=== PATIENT | female | born 1975 | race Caucasian/White ===

== ENCOUNTER → 2016-05-26 | Outpatient (CLI) | payer OTHER ==
--- NOTE | 2016-05-26 10:31 | MM ---
Reason for exam: follow-up at short interval from prior study. Last mammogram was performed 6 months ago. History: Benign US biopsy breast VAD LT of the left breast, December 08, 2015. Took hormonal contraceptives for 5 years. Physical Findings: Nurse Summary: 0.5cm nodule in the left breast at 6 o'clock (nurse kp). MG Diagnostic Mammo LT w CAD CC and MLO view(s) were taken of the left breast. Prior study comparison: December 08, 2015, left breast MG diagnostic mammo LT wo CAD. June 29, 2015, bilateral MG screening mammo w CAD. The breast tissue is extremely dense which could obscure a lesion on mammography. Previous ultrasound biopsy in the left breast. There is no discrete abnormality. ASSESSMENT: Incomplete: need additional imaging evaluation, BI-RAD 0 RECOMMENDATION: Ultrasound of the left breast. Manage patient on a clinical basis.
--- NOTE | 2016-05-26 10:34 | USB ---
Reason for exam: follow-up at short interval from prior study. History: Benign US biopsy breast VAD LT of the left breast, December 08, 2015. Took hormonal contraceptives for 5 years. US Breast LT Left breast ultrasound including all four quadrants, the retroareolar region and axilla demonstrates a 9 x 6 x 7mm irregular, solid, hypoechoic lesion at prior biopsy site at 6 o'clock, a 10mm cystic cluster at 1 o'clock, a 13mm cyst at 2 o'clock, a 22mm cyst at 2 o'clock and a 17 mm cyst at 10 o'clock. These results were verbally communicated with the patient and result sheet given to the patient on 05/26/16. ASSESSMENT: Benign, BI-RAD 2 RECOMMENDATION: Return to routine screening mammogram schedule for both breasts. Back on schedule for November 2016. Manage patient on a clinical basis.
== END | disposition home or self-care (01) ==
LOC: RADMAMWWP 08:54
PROVIDERS: ATTEND Surgery
DX: R92.8 Other abnormal and inconclusive findings on diagnostic imaging of breast (principal)
CPT/HCPCS: 76641; G0206

== ENCOUNTER → 2016-12-15 | Outpatient (CLI) | payer OTHER ==
--- NOTE | 2016-12-15 08:39 | USB ---
Reason for exam: follow-up at short interval from prior study. History: Family history of breast cancer in maternal aunt at age 40. Benign US biopsy breast VAD LT of the left breast, December 08, 2015. Took hormonal contraceptives for 5 years. Physical Findings: Nurse Summary: right breast palpable 12 o'clock, 6 o'clock, 11 o'clock 1 x 1cm movable, left breast palpables 1 o'clock, 6 o'clock, 10 o'clock, all movable 1 x 1cm (nurse ts). US Breast BILAT Right breast ultrasound includes all four quadrants, the retroareolar region and axilla. Finding demonstrates a 8mm cystic lesion at 7 o'clock and a 12mm cystic lesion at 8 o'clock. Left breast ultrasound includes all four quadrants, the retroareolar region and axilla. Finding demonstrates a 10mm cystic cluster at 12 o'clock, a 12mm cystic lesion at 1 o'clock, a 11mm cystic lesion with debris at 2 o'clock, a 20mm cystic lesion at 2 o'clock and a 5mm lesion at 6 o'clock at prior biopsy site. Bilateral scattered cysts greater in the left breast. These results were verbally communicated with the patient and result sheet given to the patient on 12/15/16. ASSESSMENT: Incomplete: need additional imaging evaluation, BI-RAD 0 RECOMMENDATION: Follow-up diagnostic mammogram of both breasts.
--- NOTE | 2016-12-15 08:47 | MM ---
Reason for exam: follow-up at short interval from prior study. Last mammogram was performed 7 months ago. History: Family history of breast cancer in maternal aunt at age 40. Benign US biopsy breast VAD LT of the left breast, December 08, 2015. Took hormonal contraceptives for 5 years. MG Diagnostic Mammo w CAD ANGELIA Bilateral CC and MLO view(s) were taken. Prior study comparison: May 26, 2016, left breast MG diagnostic mammo LT w CAD. December 08, 2015, left breast MG diagnostic mammo LT wo CAD. Bilateral well circumscribed masses. No suspicious abnormality. No significant new findings when compared with previous films. These results were verbally communicated with the patient and result sheet given to the patient on 12/15/16. ASSESSMENT: Benign, BI-RAD 2 RECOMMENDATION: Routine screening mammogram of both breasts in 1 year.
== END | disposition home or self-care (01) ==
LOC: RADUSWWP 07:01
PROVIDERS: ATTEND Surgery
DX: N60.09 Solitary cyst of unspecified breast (principal); R92.8 Other abnormal and inconclusive findings on diagnostic imaging of breast
CPT/HCPCS: 76641; G0204

== ENCOUNTER → 2017-04-16 | Outpatient (CLI) | payer OTHER | END | disposition home or self-care (01) | LOC: LABMAIN 16:40 | PROVIDERS: ATTEND Family Medicine | DX: Z11.59 Encounter for screening for other viral diseases (principal) | CPT/HCPCS: 87502 ==

== ENCOUNTER 2017-05-19 19:26 | Emergency (ER) | payer OTHER ==
[2017-05-19 20:01] VITALS: PULSE 77; RESP 18
[2017-05-19] MEDS ORDERED: diphenhydrAMINE 25 MG CAP PO STA (22:27)
[2017-05-19] MEDS ORDERED: IBUPROFEN 600 MG TAB PO STA (22:27)
[2017-05-19] MEDS ORDERED: predniSONE 20 MG TAB PO STA (22:27)
[2017-05-19] MEDS ORDERED: PROCHLORPERAZINE 10 MG TAB PO STA (22:27)
--- NOTE | 2017-05-19 22:28 | ED ---
General Adult HPI - General Chief complaint: Headache Stated complaint: Migraine Time Seen by Provider: 05/19/17 21:17 Source: patient, RN notes reviewed, old records reviewed Mode of arrival: ambulatory Limitations: no limitations - History of Present Illness Initial comments: This is a 41-year-old female the ER for evaluation of migraine. History of migraine. By the time patient is evaluated here in the emergency room, patient' s migraine has resolved. 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 ROS Other: All systems not noted in ROS Statement are negative. Past Medical History Past Medical History: No Reported History Additional Past Medical History / Comment(s): migraines History of Any Multi-Drug Resistant Organisms: None Reported Past Surgical History: Appendectomy, Section Past Psychological History: Anxiety, Bipolar, Depression Smoking Status: Current every day smoker Past Alcohol Use History: Occasional Past Drug Use History: None Reported General Exam Limitations: no limitations General appearance: alert, in no apparent distress Head exam: Present: atraumatic, normocephalic, normal inspection Eye exam: Present: normal appearance, PERRL, EOMI. Absent: scleral icterus, conjunctival injection, periorbital swelling ENT exam: Present: normal exam, mucous membranes moist Neck exam: Present: normal inspection. Absent: tenderness, meningismus, lymphadenopathy Respiratory exam: Present: normal lung sounds bilaterally. Absent: respiratory distress, wheezes, rales, rhonchi, stridor Cardiovascular Exam: Present: regular rate, normal rhythm, normal heart sounds. Absent: systolic murmur, diastolic murmur, rubs, gallop, clicks GI/Abdominal exam: Present: soft, normal bowel sounds. Absent: distended, tenderness, guarding, rebound, rigid Extremities exam: Present: normal inspection, full ROM, normal capillary refill. Absent: tenderness, pedal edema, joint swelling, calf tenderness Back exam: Present: normal inspection Neurological exam: Present: alert, oriented X3, CN II-XII intact Psychiatric exam: Present: normal affect, normal mood Skin exam: Present: warm, dry, intact, normal color. Absent: rash Course Vital Signs 05/19/17 05/19/17 19:58 22:50 Temperature 97.5 F L 98.6 F Pulse Rate 77 77 Respiratory 18 18 Rate Blood Pressure 106/72 125/69 O2 Sat by Pulse 99 96 Oximetry - Reevaluation(s) Reevaluation #1: Patient recurrently coming off the desk asking to be discharged home states that she has no longer with headache, does not want medication Medical Decision Making - Medical Decision Making 41 female the ER with acute on chronic migraine headache. Headache resolved, patient can be discharged Disposition Clinical Impression: Migraine, Headache Disposition: HOME SELF-CARE Condition: Good Instructions: Acute Headache (ED) Referrals: Jeremias Frey DO [Primary Care Provider] - 1-2 days
[2017-05-19 22:52] VITALS: BP 125/69; TEMP 98.6
== END 2017-05-19 22:52 | disposition home or self-care (01) ==
LOC: EC 19:26
DX: G43.909 Migraine, unspecified, not intractable, without status migrainosus (principal); F17.200 Nicotine dependence, unspecified, uncomplicated; Z79.899 Other long term (current) drug therapy; Z88.1 Allergy status to other antibiotic agents
CPT/HCPCS: 99283; J7512

== ENCOUNTER 2017-07-22 09:35 | Observation (INO) | payer OTHER ==
[2017-07-22] MEDS ORDERED: NITROGLYCERIN SL TABS 0.4 MG TAB SUBLINGUAL STA (09:49)
[2017-07-22] MEDS ORDERED: ASPIRIN 81 MG PO STA (09:49)
--- NOTE | 2017-07-22 09:52 | ED ---
Chest Pain HPI - General Chief Complaint: Chest Pain Stated Complaint: Chest Pain Time Seen by Provider: 07/22/17 09:44 Source: patient, RN notes reviewed Mode of arrival: wheelchair Limitations: no limitations - History of Present Illness Initial Comments: Is a 41-year-old female with a benign past medical history other than smoking who states she had the onset about 30 minutes prior to arrival of sharp tight chest pain that feels a band around her chest at its worse is 9/10 currently is about a 7 it does increase with movement and certain positional changes she has no prior history of anything like this a history of heart or lung disease that she knows of no history of family having heart or lung issues at early age. No cough fevers chills sweats or other symptoms no other modifying factors. 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 ROS Other: All systems not noted in ROS Statement are negative. Past Medical History Past Medical History: No Reported History Additional Past Medical History / Comment(s): migraines History of Any Multi-Drug Resistant Organisms: None Reported Past Surgical History: Appendectomy, Section Past Psychological History: Anxiety, Bipolar, Depression Smoking Status: Current every day smoker Past Alcohol Use History: Occasional Past Drug Use History: None Reported General Exam - General Exam Comments Initial Comments: This is a well-developed well-nourished awake alert oriented 3 female Limitations: no limitations General appearance: alert, anxious Head exam: Present: atraumatic, normocephalic, normal inspection Eye exam: Present: normal appearance, PERRL, EOMI. Absent: scleral icterus, conjunctival injection, periorbital swelling ENT exam: Present: normal exam, mucous membranes moist Neck exam: Present: normal inspection. Absent: tenderness, meningismus, lymphadenopathy Respiratory exam: Present: normal lung sounds bilaterally. Absent: respiratory distress, wheezes, rales, rhonchi, stridor, chest wall tenderness Cardiovascular Exam: Present: regular rate, normal rhythm, normal heart sounds, other (Peripheral pulses are equal bilaterally). Absent: systolic murmur, diastolic murmur, rubs, gallop, clicks GI/Abdominal exam: Present: soft, normal bowel sounds. Absent: distended, tenderness, guarding, rebound, rigid Extremities exam: Present: normal inspection, full ROM, normal capillary refill. Absent: tenderness, pedal edema, joint swelling, calf tenderness Back exam: Present: normal inspection Neurological exam: Present: alert, oriented X3, CN II-XII intact Psychiatric exam: Present: normal affect, normal mood Skin exam: Present: warm, dry, intact, normal color. Absent: rash Course Vital Signs 07/22/17 07/22/17 07/22/17 09:36 10:35 11:21 Temperature 97.7 F Pulse Rate 90 63 69 Respiratory 22 16 16 Rate Blood Pressure 102/59 90/50 97/59 O2 Sat by Pulse 100 100 100 Oximetry - Reevaluation(s) Reevaluation #1: 07/22/17 11:35 Patient did seem to get some improvement with the nitroglycerin was rendered she still had pain it was bandlike and approximately 5/10. Reevaluation #2: 07/22/17 11:36 Patient did get "little results from IV Toradol. Chest Pain MDM - MDM Imaging reveals no acute findings. I did review the images as well as report. Patient does have chest pain that seemed to improve with nitroglycerin. She will be admitted for rule out ACS. Critical Care Time Critical Care Time: Yes Disposition Clinical Impression: Unstable angina pectoris, Chest pain Disposition: ADMITTED IP TO THIS [facility] Condition: Stable Referrals: Jeremias Frey DO [Primary Care Provider] - 1-2 days
[2017-07-22 10:10] LABS: Basophils % (A) 0 %; Eosinophils # (A) 0.1 k/uL (0-0.7); Eosinophils % (A) 2 %; HCT 39.6 % (34.0-46.0); HGB 13.7 gm/dL (11.4-16.0); Lymphocytes # (A) 2.2 k/uL (1.0-4.8); Lymphocytes % (A) 28 %; MCH 28.6 pg (25.0-35.0); MCHC 34.6 g/dL (31.0-37.0); MCV 82.8 fL (80.0-100.0); Mean Platelet Volume 7.3; Monocytes # (A) 0.4 k/uL (0-1.0); Monocytes % (A) 5 %; Neutrophils # (A) 5.1 k/uL (1.3-7.7); Neutrophils % (A) 65 %; Platelet Count 279 k/uL (150-450); RBC 4.78 m/uL (3.80-5.40); RDW 12.7 % (11.5-15.5); WBC 7.9 k/uL (3.8-10.6)
[2017-07-22 10:17] LABS: Albumin 4.2 g/dL (3.5-5.0); Calcium 9.7 mg/dL (8.4-10.2); Potassium 4.2 mmol/L (3.5-5.1); Total Bilirubin 0.7 mg/dL (0.2-1.3); Total Protein 6.7 g/dL (6.3-8.2)
[2017-07-22 10:25] LABS: D-Dimer 0.34 mg/L FEU (<0.60); INR 1.1 (<1.2); Partial Thromboplastin Time 22.7 sec (22.0-30.0); Prothrombin Time 10.3 sec (9.0-12.0)
[2017-07-22 10:32] LABS: Creatine Kinase 45 U/L (30-135)
--- NOTE | 2017-07-22 10:34 | XR ---
EXAMINATION TYPE: XR chest 2V DATE OF EXAM: 07/22/2017 HISTORY: Chest Pain. REFERENCE: Previous study dated 10/08/2013. FINDINGS: The lungs remain clear. Pleural spaces are clear. The heart is not enlarged. IMPRESSION: NORMAL CHEST.
[2017-07-22] MEDS ORDERED: KETOROLAC 30 MG/ML 1 ML VIAL IVP STA (10:35)
[2017-07-22 10:45] LABS: Creatine Kinase MB <0.2 ng/mL (0.0-2.4); Troponin I <0.012 ng/mL (0.000-0.034)
[2017-07-22] MEDS ORDERED: NITROGLYCERIN SL TABS 0.4 MG TAB SUBLINGUAL PRN (11:37)
[2017-07-22] MEDS ORDERED: SUMAtriptan SUCCINATE 50 MG TAB PO PRN (11:40)
[2017-07-22] MEDS ORDERED: HEPARIN SOD,PORK IN 0.45% NACL 25,000 UNIT in 0.45% NACL 1 500ML.BAG IV SCH (11:45)
[2017-07-22] MEDS: HEPARIN SODIUM,PORCINE 5,000 UNIT/ML 1 ML VIAL IV ONE ×2 (12:10→20:35)
[2017-07-22] MEDS: NITROGLYCERIN OINT 1 INCH/GM PACKET TOPICAL SCH ×3 (12:16→18:34)
[2017-07-22] MEDS: SODIUM CHLORIDE 0.9% 1,000 ML IV SCH (12:16)
[2017-07-22 17:00] LABS: Creatine Kinase 42 U/L (30-135)
[2017-07-22 17:12] LABS: Creatine Kinase MB <0.2 ng/mL (0.0-2.4); Troponin I <0.012 ng/mL (0.000-0.034)
[2017-07-22 18:02] VITALS: BMI 38.8
--- NOTE | 2017-07-22 18:37 | P.HPIM ---
History of Present Illness 41-year-old female with no significant past medical history came in with complaints of upper back pain radiating around the chest lasted for about the 30 minutes 9/10 in severity. Denied any radiation to the neck chain are arms. Patient was having acid reflux symptoms for few days staking Prilosec stent milligrams in the morning but she continues to have symptoms at nighttime although this pain appears to be different from that. Patient pain is not associated with food nonpleuritic in nature, d-dimer is negative chest x-ray did not show any pneumonic process or hiatal hernia EKG did not show any acute ST-T wave changes facet of troponin is negative does have history of smoking doesn't have any history of hypertension premature coronary artery disease, diabetes mellitus or hyperlipidemia Review of Systems REVIEW OF SYSTEMS: CONSTITUTIONAL: No fever, no malaise, no fatigue. HEENT: No recent visual problems or hearing problems. Denied any sore throat. CARDIOVASCULAR: No orthopnea, PND, no palpitations, no syncope. PULMONARY: No shortness of breath, no cough, no hemoptysis. GASTROINTESTINAL: No diarrhea, no nausea, no vomiting, no abdominal pain. Normoactive bowel sounds. NEUROLOGICAL: No headaches, no weakness, no numbness. HEMATOLOGICAL: Denies any bleeding or petechiae. GENITOURINARY: Denies any burning micturition, frequency, or urgency. MUSCULOSKELETAL/RHEUMATOLOGICAL: Denies any joint pain, swelling, or any muscle pain. ENDOCRINE: Denies any polyuria or polydipsia. The rest of the 14-point review of systems is negative. Past Medical History Past Medical History: GERD/Reflux, Pneumonia Additional Past Medical History / Comment(s): migraines History of Any Multi-Drug Resistant Organisms: None Reported Past Surgical History: Appendectomy, Section Additional Past Surgical History / Comment(s): L breast biopsy (2017) benign Past Anesthesia/Blood Transfusion Reactions: No Reported Reaction Past Psychological History: Anxiety, Bipolar, Depression Smoking Status: Current every day smoker Past Alcohol Use History: Occasional Past Drug Use History: None Reported - Past Family History Mother Family Medical History: Cancer, Hypertension Additional Family Medical History / Comment(s): Breast cancer dx 2018 Father History Unknown: Yes Medications and Allergies Home Medications Medication Instructions Recorded Confirmed Type Cholecalciferol [Vitamin D3] 2,000 unit PO DAILY 03/15/16 07/22/17 History 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] 10 mg PO DAILY PRN 05/19/17 07/22/17 History Topiramate [Topamax] 25 mg PO HS 07/22/17 07/22/17 History Allergies Allergy/AdvReac Type Severity Reaction Status Date / Time egg Allergy Unknown Verified 07/22/17 12:07 nitrofurantoin Allergy Rash/Hives Verified 07/22/17 12:07 tetracycline [Tetracycline] Allergy Rash/Hives Verified 07/22/17 12:07 Physical Exam Vitals: Vital Signs Temp Pulse Pulse Resp BP BP Pulse Ox 07/22/17 15:35 97.6 F 72 14 107/67 97 07/22/17 15:24 98.4 F 66 16 93/53 97 07/22/17 13:00 78 16 96/58 99 07/22/17 12:16 69 16 85/53 98 07/22/17 11:21 69 16 97/59 100 07/22/17 10:35 63 16 90/50 100 07/22/17 09:36 97.7 F 90 22 102/59 100 Intake and Output 07/22/17 07/22/17 07/22/17 06:59 14:59 22:59 Other: Weight 99.79 kg 99.4 kg PHYSICAL EXAMINATION: GENERAL: The patient is alert and oriented x3, not in any acute distress. Well developed, well nourished. HEENT: Pupils are round and equally reacting to light. EOMI. No scleral icterus. No conjunctival pallor. Normocephalic, atraumatic. No pharyngeal erythema. No thyromegaly. CARDIOVASCULAR: S1 and S2 present. No murmurs, rubs, or gallops. PULMONARY: Chest is clear to auscultation, no wheezing or crackles. ABDOMEN: Soft, nontender, nondistended, normoactive bowel sounds. No palpable organomegaly. MUSCULOSKELETAL: No joint swelling or deformity. EXTREMITIES: No cyanosis, clubbing, or pedal edema. NEUROLOGICAL: Gross neurological examination did not reveal any focal deficits. SKIN: No rashes. Results CBC & Chem 7: 07/22/17 09:57 07/22/17 09:57 Labs: Abnormal Lab Results - Last 24 Hours (Table) 07/22/17 Range/Units 09:57 Chloride 110 H (98-107) mmol/L Carbon Dioxide 21 L (22-30) mmol/L AST 13 L (14-36) U/L Thrombosis Risk Factor Assmnt - Choose All That Apply Each Factor Represents 1 point: Age 41-60 years Thrombosis Risk Factor Assessment Total Risk Factor Score: 1 Thrombosis Risk Factor Assessment Level: Low Risk Assessment and Plan Plan: Chest pain-we'll rule out acute coronary syndromes, cardiology was consulted from ER, patient will be monitored overnight today. Patient's chest pain is probably musculoskeletal from thoracic spine. -Gastroesophageal reflux disease: Patient will be started on proton pump inhibitor is advised to take 20 mg twice a day of Prilosec for 15 days and if patient's symptoms doesn't improve may need an upper GI endoscopy and Helicobacter pylori testing. -History of migraines, patient will be resumed on her home medications. -Smoking history: Counseling was provided
[2017-07-22] MEDS: PANTOPRAZOLE 40 MG TABLET PO SCH (18:40)
--- NOTE | 2017-07-22 18:41 | XR ---
EXAMINATION TYPE: XR thoracic spine complete DATE OF EXAM: 07/22/2017 COMPARISON: NONE HISTORY: 41-year-old female with back pain TECHNIQUE: 3 views FINDINGS: 12 rib-bearing thoracic vertebral bodies. All pedicles are visualized. Mild endplate spondylosis thro ughout the mid thoracic spine with mild degenerative disc disease. Vertebral body heights are preserv ed and alignment is maintained. 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 No vertebral compression collapse or remedios lignment.
[2017-07-22] MEDS ORDERED: HEPARIN SODIUM,PORCINE 5,000 UNIT/ML 1 ML VIAL IV PRN (20:16)
[2017-07-22] MEDS: TOPIRAMATE 25 MG TAB PO SCH (20:36)
[2017-07-22 22:38] LABS: Creatine Kinase 41 U/L (30-135)
[2017-07-22 22:51] LABS: Creatine Kinase MB <0.2 ng/mL (0.0-2.4); Troponin I <0.012 ng/mL (0.000-0.034)
[2017-07-23] MEDS: NITROGLYCERIN OINT 1 INCH/GM PACKET TOPICAL SCH ×2 (00:32→06:19)
[2017-07-23 02:27] LABS: Cholesterol 139 mg/dL (<200); HDL Cholesterol 39 mg/dL (40-60); LDL Cholesterol,Calculated 76 mg/dL (0-99); Triglycerides 121 mg/dL (<150)
--- NOTE | 2017-07-23 08:32 | P.CRDCN ---
History of Present Illness Consult date: 07/23/17 Requesting physician: Jeremias Frey Consult reason: chest pain Chief complaint: Upper back pain, chest pain, nausea History of present illness: This is a pleasant 41-year-old female with no prior documented history of hypertension, no hyperlipidemia, nondiabetic, positive smoker, history of migraines, who presents to the hospital with symptoms of upper back intrascapular discomfort area she states that she was getting ready for work when the symptoms started. They came on all of a sudden felt like a pain in her upper back, she sat down and tried to stretch the discomfort away, but she said this does not work. She did go on run a few errands, pain seemed to worsen as the day progressed, patient also then noticed a pain going underneath her right breast area. She states that for the past one week or so she's been having episodes of nausea, no vomiting or diarrhea. She also has been getting intermittent abdominal discomfort unrelated to this episode. Blood pressure 96/ 50 heart rate in the 60s, 97% on room air, temperature 97.7. EKG on arrival showed a normal sinus rhythm with no acute changes. Subsequent EKG showed normal sinus rhythm with no acute changes. Chest x-ray normal. Thoracic spine x-ray revealed mild degenerative disc disease in the mid to upper thoracic spine. No vertebral compression collapse or misalignment. Laboratory data, CBC is normal, d-dimer negative, sodium 145, potassium 4.2, BUN 16, creatinine 0.9. Magnesium level 2.0. Troponins negative 3. Cholesterol 139, LDL 76, HDL 39, triglycerides 121. At the time of my examination this morning, patient is currently chest pain-free. Upon examination, when taking a deep breath patient does experience upper back and scapular discomfort while taking a deep breath. Past Medical History Past Medical History: GERD/Reflux, Pneumonia Additional Past Medical History / Comment(s): migraines History of Any Multi-Drug Resistant Organisms: None Reported Past Surgical History: Appendectomy, Section Additional Past Surgical History / Comment(s): L breast biopsy (2017) benign Past Anesthesia/Blood Transfusion Reactions: No Reported Reaction Past Psychological History: Anxiety, Bipolar, Depression Smoking Status: Current every day smoker Past Alcohol Use History: Occasional Past Drug Use History: None Reported - Past Family History Mother Family Medical History: Cancer, Hypertension Additional Family Medical History / Comment(s): Breast cancer dx 2018 Father History Unknown: Yes Medications and Allergies Home Medications Medication Instructions Recorded Confirmed Type Cholecalciferol [Vitamin D3] 2,000 unit PO DAILY 03/15/16 07/22/17 History Rizatriptan Odt [[employer] Workers Compensation Attorney] 10 mg PO DAILY PRN 05/19/17 07/22/17 History Topiramate [Topamax] 25 mg PO HS 07/22/17 07/22/17 History Allergies Allergy/AdvReac Type Severity Reaction Status Date / Time egg Allergy Unknown Verified 07/22/17 12:07 nitrofurantoin Allergy Rash/Hives Verified 07/22/17 12:07 tetracycline [Tetracycline] Allergy Rash/Hives Verified 07/22/17 12:07 Physical Exam Vitals: Vital Signs Temp Pulse Pulse Pulse Resp BP BP 07/23/17 04:00 97.7 F 66 64 18 96/57 07/23/17 00:18 97 F L 72 16 94/52 07/23/17 00:00 65 16 07/22/17 20:20 97.8 F 70 16 92/56 07/22/17 20:00 69 16 07/22/17 15:35 97.6 F 72 14 107/67 07/22/17 15:24 98.4 F 66 16 93/53 07/22/17 13:00 78 16 96/58 07/22/17 12:16 69 16 85/53 07/22/17 11:21 69 16 97/59 07/22/17 10:35 63 16 90/50 07/22/17 09:36 97.7 F 90 22 102/59 Pulse Ox 07/23/17 04:00 97 07/23/17 00:18 96 07/23/17 00:00 07/22/17 20:20 96 07/22/17 20:00 07/22/17 15:35 97 07/22/17 15:24 97 07/22/17 13:00 99 07/22/17 12:16 98 07/22/17 11:21 100 07/22/17 10:35 100 07/22/17 09:36 100 Intake and Output 07/22/17 07/23/17 07/23/17 22:59 06:59 14:59 Intake Total 167.913 Balance 167.913 Intake: Intake, IV Titration 167.913 Amount Heparin Sod,Pork in 0.45% 167.913 NaCl 25,000 unit In 0.45 % NaCl 1 500ml.bag @ 10 UNITS/KG/HR 19.95 mls/hr IV .Q24H [facility] Rx#: [id number] Other: Voiding Method Toilet Toilet # Voids 1 Weight 99.4 kg 99.4 kg PHYSICAL EXAMINATION: HEENT: Head is atraumatic, normocephalic. Pupils equal, round. Neck is supple. There is no elevated jugular venous pressure. HEART EXAMINATION: Heart S1, S2 normal. No murmur or gallop heard. CHEST EXAMINATION:[ Lungs are clear to auscultation and precussion. Positive upper back and scapular discomfort with deep breathing. ABDOMEN: Soft, nontender. Bowel sounds are heard. No organomegaly noted. EXTREMITIES: 2+ peripheral pulses with no evidence of peripheral edema and no calf tenderness noted. NEUROLOGIC patient is awake, alert and oriented -3. . Results 07/22/17 09:57 07/22/17 09:57 Cardiac Enzymes 07/22/17 07/22/17 07/22/17 Range/Units 09:57 09:57 16:10 AST 13 L (14-36) U/L CK-MB (CK-2) <0.2 <0.2 (0.0-2.4) ng/mL Troponin I <0.012 <0.012 (0.000-0.034) ng/mL 07/22/17 Range/Units 22:04 AST (14-36) U/L CK-MB (CK-2) <0.2 (0.0-2.4) ng/mL Troponin I <0.012 (0.000-0.034) ng/mL Coagulation 07/22/17 07/22/17 07/23/17 Range/Units 09:57 19:01 01:21 PT 10.3 (9.0-12.0) sec APTT 22.7 33.1 H 57.7 H (22.0-30.0) sec Lipids 07/23/17 Range/Units 01:21 Triglycerides 121 (<150) mg/dL Cholesterol 139 (<200) mg/dL HDL Cholesterol 39 L (40-60) mg/dL CBC 07/22/17 Range/Units 09:57 WBC 7.9 (3.8-10.6) k/uL RBC 4.78 (3.80-5.40) m/uL Hgb 13.7 (11.4-16.0) gm/dL Hct 39.6 (34.0-46.0) % Plt Count 279 (150-450) k/uL Comprehensive Metabolic Panel 07/22/17 Range/Units 09:57 Sodium 145 (137-145) mmol/L Potassium 4.2 (3.5-5.1) mmol/L Chloride 110 H (98-107) mmol/L Carbon Dioxide 21 L (22-30) mmol/L BUN 16 (7-17) mg/dL Creatinine 0.92 (0.52-1.04) mg/dL Glucose 98 (74-99) mg/dL Calcium 9.7 (8.4-10.2) mg/dL AST 13 L (14-36) U/L ALT 20 (9-52) U/L Alkaline Phosphatase 53 (38-126) U/L Total Protein 6.7 (6.3-8.2) g/dL Albumin 4.2 (3.5-5.0) g/dL Current Medications Generic Name Dose Route Start Last Admin Trade Name Freq PRN Reason Stop Dose Admin Aspirin 325 mg 07/23/17 09:00 Aspirin PO DAILY [facility] Cholecalciferol 1,000 unit 07/23/17 09:00 Vitamin D3 PO DAILY [facility] Heparin Sodium (Porcine) 0 unit 07/22/17 20:16 Heparin IV PER PROTOCOL PRN Low PTT Protocol Heparin Sodium/Sodium Chloride 500 mls @ 19.95 mls/hr 07/22/17 11:45 20:35 25,000 unit/ Sodium Chloride IV 13.02 units/kg/hr .Q24H [facility] 26 mls/hr Protocol Titration 10 UNITS/KG/HR Sodium Chloride 1,000 mls @ 20 mls/hr 07/22/17 11:45 07/22/17 12:16 Saline 0.9% IV 20 mls/hr .Q24H [facility] Administration Nitroglycerin 1 inch 07/22/17 12:00 07/23/17 06:19 Nitro-Bid Oint TOPICAL Not Given Q6HR [facility] Nitroglycerin 0.4 mg 07/22/17 11:37 Nitrostat SUBLINGUAL Q5M PRN Chest Pain Pantoprazole Sodium 40 mg 07/22/17 18:15 07/22/17 18:40 Protonix PO 40 mg AC-BID [facility] Administration Sumatriptan Succinate 100 mg 07/22/17 11:40 Imitrex PO DAILY PRN Migraine Headache Topiramate 25 mg 07/22/17 21:00 07/22/17 20:36 Topamax PO 25 mg HS [facility] Administration Intake and Output 07/22/17 07/23/17 07/23/17 22:59 06:59 14:59 Intake Total 167.913 Balance 167.913 Intake: Intake, IV Titration 167.913 Amount Heparin Sod,Pork in 0.45% 167.913 NaCl 25,000 unit In 0.45 % NaCl 1 500ml.bag @ 10 UNITS/KG/HR 19.95 mls/hr IV .Q24H [facility] Rx#: [id number] Other: Voiding Method Toilet Toilet # Voids 1 Weight 99.4 kg 99.4 kg 07/22/17 09:57 07/22/17 09:57 EKG Interpretations (text) EKG shows a normal sinus rhythm with no acute changes. Assessment and Plan Plan: Assessment and plan #1 symptoms of upper back and scapular discomfort with associated chest discomfort, atypical for acute coronary syndrome. Appears to be musculoskeletal and pleuritic in nature. Troponins negative 3. EKG shows normal sinus rhythm with no acute changes. D-dimer negative. #2 nicotine dependence #3 cardiac risk factors negative for hypertension, no diabetes, no hyperlipidemia #4 persistent nausea and occasional abdominal discomfort Plan We will obtain an echocardiogram with Doppler study. Discontinue Nitropaste. Discontinue IV heparin. Decrease aspirin to 81 mg daily. We will obtain an ultrasound of the gallbladder because of the symptoms of persistent nausea and abdominal discomfort. We also recommend patient undergo stress testing tomorrow to rule out underlying coronary artery disease. Further recommendations to follow. DNP note has been reviewed, I agree with a documented findings and plan of care. Patient was seen and examined.
[2017-07-23] MEDS ORDERED: ASPIRIN 325 MG TAB PO SCH (09:00)
--- NOTE | 2017-07-23 09:52 | US ---
EXAMINATION TYPE: US gallbladder DATE OF EXAM: 07/23/2017 COMPARISON: NONE CLINICAL HISTORY: nausea, abd pain. EXAM MEASUREMENTS: Liver Length: 17.3 cm Gallbladder Wall: 0.2 cm CBD: 0.3 cm Right Kidney: 11.2 x 4.7 x 4.7 cm Limited due to bowel gas. Pancreas: wnl Liver: wnl Gallbladder: wnl Evidence for sonographic Chavarria's sign: No CBD: wnl Right Kidney: wnl The pancreas is unremarkable. The liver is upper limits of normal in size without biliary dilatation. The gallbladder is normal without evidence of cholelithiasis. The gallbladder wall measures 2.5 mm. T he distal common hepatic duct measures 2.9 mm. There is no sonographic Chavarria's sign. The right kidney is unremarkable. Intrahepatic IVC is normal. IMPRESSION: NORMAL RIGHT UPPER QUADRANT ULTRASOUND.
[2017-07-23] MEDS: PANTOPRAZOLE 40 MG TABLET PO SCH ×2 (12:17→17:27)
[2017-07-23] MEDS: ASPIRIN 81 MG PO SCH (12:17)
[2017-07-23] MEDS: CHOLECALCIFEROL 1,000 UNIT TAB PO SCH (12:17)
--- NOTE | 2017-07-23 17:06 | P.PN ---
Subjective Patient was admitted with chest pain mostly [place] skeletal nature patient does have degenerative thoracic spine disease and spondylolisthesis. Ultrasound of the right upper quadrant was obtained by cardiology which was negative for any cholelithiasis. Cardiology is recommending inpatient stress test. Her chest pain is / now Constitutional: Denied any fatigue denied any fever. Cardio vascular: denied any chest pain, palpitations Gastrointestinal denied any nausea vomiting Pulmonary: Denied any shortness of breath cough Neurologic denied any new focal deficits Objective - Vital Signs Vital signs: Vital Signs Temp 97.9 F 07/23/17 16:00 Pulse 70 07/23/17 16:00 Resp 16 07/23/17 16:00 BP 111/56 07/23/17 16:00 Pulse Ox 97 07/23/17 16:00 Intake & Output 07/22/17 07/23/17 07/23/17 18:59 06:59 18:59 Intake Total 167.913 Balance 167.913 Weight 99.4 kg 99.4 kg Intake: Intake, IV Titration 167.913 Amount Heparin Sod,Pork in 0.45% 167.913 NaCl 25,000 unit In 0.45 % NaCl 1 500ml.bag @ 10 UNITS/KG/HR 19.95 mls/hr IV .Q24H [facility] Rx#: [id number] Other: Voiding Method Toilet Toilet Toilet # Voids 1 - Exam PHYSICAL EXAMINATION: GENERAL: The patient is alert and oriented x3, not in any acute distress. Well developed, well nourished. HEENT: Pupils are round and equally reacting to light. EOMI. No scleral icterus. No conjunctival pallor. Normocephalic, atraumatic. No pharyngeal erythema. No thyromegaly. CARDIOVASCULAR: S1 and S2 present. No murmurs, rubs, or gallops. PULMONARY: Chest is clear to auscultation, no wheezing or crackles. ABDOMEN: Soft, nontender, nondistended, normoactive bowel sounds. No palpable organomegaly. MUSCULOSKELETAL: No joint swelling or deformity. EXTREMITIES: No cyanosis, clubbing, or pedal edema. NEUROLOGICAL: Gross neurological examination did not reveal any focal deficits. SKIN: No rashes. - Labs CBC & Chem 7: 07/22/17 09:57 07/22/17 09:57 Labs: Abnormal Lab Results - Last 24 Hours (Table) 07/22/17 07/23/17 07/23/17 Range/Units 19:01 01:21 01:21 APTT 33.1 H 57.7 H (22.0-30.0) sec HDL Cholesterol 39 L (40-60) mg/dL Assessment and Plan Plan: Chest pain-we'll rule out acute coronary syndromes, cardiology was consulted from ER, patient will be monitored overnight today. Patient's chest pain is probably musculoskeletal from thoracic spine. Cardiology is recommending inpatient stress test which will be done tomorrow along with echocardiogram -Gastroesophageal reflux disease: Patient will be started on proton pump inhibitor patient was advised to take 20 mg twice a day of Prilosec for 15 days and if patient's symptoms doesn't improve may need an upper GI endoscopy and Helicobacter pylori testing. -History of migraines, patient will be resumed on her home medications. -Smoking history: Counseling was provided
[2017-07-23] MEDS: TOPIRAMATE 25 MG TAB PO SCH (20:48)
[2017-07-24 07:57] VITALS: RESP 18
--- NOTE | 2017-07-24 10:52 | ECHOF ---
Referral Reason:chest pain MEASUREMENTS -------- HEIGHT: 160.0 cm WEIGHT: 99.3 kg BP: 102/61 RVIDd: 2.8 cm (< 3.3) IVSd: 1.2 cm (0.6 - 1.1) LVIDd: 4.5 cm (3.9 - 5.3) LVPWd: 1.2 cm (0.6 - 1.1) IVSs: 1.6 cm LVIDs: 3.0 cm LVPWs: 1.6 cm LA Diam: 2.9 cm (2.7 - 3.8) LAESV Index (A-L): 13.95 ml/m Ao Diam: 3.0 cm (2.0 - 3.7) AV Cusp: 2.2 cm (1.5 - 2.6) MV EXCURSION: 17.310 mm (> 18.000) MV EF SLOPE: 69 mm/s (70 - 150) EPSS: 0.7 cm MV E Terrell: 0.82 m/s MV DecT: 233 ms MV A Terrell: 0.78 m/s MV E/A Ratio: 1.06 FINDINGS -------- Sinus rhythm. This was a technically adequate study. The left ventricular size is normal. There is borderline concentric left ventricular hypertrophy. Overall left ventricular systolic function is normal with, an EF between 55 - 60 %. The right ventricle is normal in size. Normal LA size by volume 22+/-6 ml/m2. The right atrium is normal in size. The aortic valve is trileaflet and appears structurally normal. The mitral valve is normal. The tricuspid valve appears structurally normal. There is no pulmonic regurgitation present. The aortic root size is normal. Normal inferior vena cava with normal inspiratory collapse consistent with estimated right atrial pre ssure of 5 mmHg. There is no pericardial effusion. CONCLUSIONS -------- 1. Sinus rhythm. 2. This was a technically adequate study. 3. The left ventricular size is normal. 4. There is borderline concentric left ventricular hypertrophy. 5. Overall left ventricular systolic function is normal with, an EF between 55 - 60 %. 6. The right ventricle is normal in size. 7. Normal LA size by volume 22+/-6 ml/m2. 8. The right atrium is normal in size. 9. The aortic valve is trileaflet and appears structurally normal. 10. The mitral valve is normal. 11. The tricuspid valve appears structurally normal. 12. There is no pulmonic regurgitation present. 13. The aortic root size is normal. 14. Normal inferior vena cava with normal inspiratory collapse consistent with estimated right atrial pressure of 5 mmHg. 15. There is no pericardial effusion. CLINIC PHYSICIAN: Estefany Cotter RDCS
--- NOTE | 2017-07-24 11:12 | P.PN ---
Subjective Progress Note Date: 07/24/17 Mrs. Ortiz is a pleasant 41-year-old female past medical history significant for gastroesophageal reflux disease, anxiety and chronic tobacco use. She was seen yesterday in consultation for symptoms of chest pain. She has had no further symptoms of chest discomfort since admission. Blood pressure 105/ 57 heart rate 71 afebrile and maintaining oxygen saturation on room air. Telemetry tracings have been unremarkable. LDL 76, HDL 39. Ultrasound of the gallbladder was performed yesterday and is negative. Objective - Vital Signs Vital signs: Vital Signs Temp 98.7 F 07/24/17 07:55 Pulse 71 07/24/17 07:55 Resp 18 07/24/17 08:00 BP 105/57 07/24/17 07:55 Pulse Ox 94 L 07/24/17 07:55 Intake & Output 07/23/17 07/24/17 07/24/17 18:59 06:59 18:59 Weight 99.4 kg Other: Voiding Method Toilet Toilet Toilet # Voids 1 - Exam GENERAL: Well-appearing, well-nourished and in no acute distress. NECK: Supple without JVD or thyromegaly. LUNGS: Breath sounds clear to auscultation bilaterally. Respiration equal and unlabored. No wheezes, rales or rhonchi. HEART: Regular rate and rhythm without murmurs, rubs or gallops. S1 and S2 heard. EXTREMITIES: Normal range of motion, no edema. No clubbing or cyanosis. Peripheral pulses intact and strong. - Labs CBC & Chem 7: 07/22/17 09:57 07/22/17 09:57 Assessment and Plan Assessment: ASSESSMENT 1. Chest pain, atypical. An acute coronary event has been ruled out. Pain is more musculoskeletal and pleuritic in nature. 2. Chronic tobacco abuse 3. History of anxiety PLAN Proceed with stress echocardiogram is as previously ordered. If this testing is negative she is stable from a cardiac perspective. Nurse Practitioner note has been reviewed, I agree with a documented findings and plan of care. Patient was seen and examined.
--- NOTE | 2017-07-24 11:49 | P.DS ---
Providers Date of admission: 07/22/17 11:40 Attending physician: Jeremias Frey Consults: 07/22/17 11:37 Consult Physician Urgent Consulting Provider: Corey Roque Consult Reason/Comments: Chest pain Do you want consulting provider notified?: Yes Primary care physician: Jeremias Frey [facility] Hospital Course: Patient was admitted with chest pain mostly [place] skeletal nature patient does have degenerative thoracic spine disease and spondylolisthesis. Ultrasound of the right upper quadrant was obtained by cardiology which was negative for any cholelithiasis. Cardiology is recommending inpatient stress test. Her chest pain is 04/05 now 07/24/2017 Patient doesn't have any more chest pain patient chest is Mus[place] skeletal nature patient underwent the echocardiogram which was within normal limits awaiting stress test results of that is negative patient will be discharged today.. For rest of her chronic other medical problems please refer to my dictation of a progress note from as today. PHYSICAL EXAMINATION: GENERAL: The patient is alert and oriented x3, not in any acute distress. Well developed, well nourished. HEENT: Pupils are round and equally reacting to light. EOMI. No scleral icterus. No conjunctival pallor. Normocephalic, atraumatic. No pharyngeal erythema. No thyromegaly. CARDIOVASCULAR: S1 and S2 present. No murmurs, rubs, or gallops. PULMONARY: Chest is clear to auscultation, no wheezing or crackles. ABDOMEN: Soft, nontender, nondistended, normoactive bowel sounds. No palpable organomegaly. MUSCULOSKELETAL: No joint swelling or deformity. EXTREMITIES: No cyanosis, clubbing, or pedal edema. NEUROLOGICAL: Gross neurological examination did not reveal any focal deficits. SKIN: No rashes. Patient Condition at Discharge: Stable Plan - Discharge Summary Discharge Rx Participant: No New Discharge Prescriptions: No Action Cholecalciferol [Vitamin D3] 2,000 unit PO DAILY Rizatriptan Odt [[employer] Insurance Verification Specialist] 10 mg PO DAILY PRN PRN Reason: Migraine Headache Topiramate [Topamax] 25 mg PO HS Discharge Medication List Cholecalciferol [Vitamin D3] 2,000 unit PO DAILY 03/15/16 [History] Rizatriptan Odt [[employer] Verification Specialist] 10 mg PO DAILY PRN 05/19/17 [History] Topiramate [Topamax] 25 mg PO HS 07/22/17 [History] Follow up Appointment(s)/Referral(s): Jeremias Frey DO [Primary Care Provider] - 3 Days Discharge Disposition: HOME SELF-CARE
[2017-07-24] MEDS: SODIUM CHLORIDE 0.9% 1,000 ML IV SCH (12:22)
[2017-07-24 12:23] VITALS: BP 101/54; PULSE 81; TEMP 98.9
[2017-07-24] MEDS: ASPIRIN 81 MG PO SCH (12:24)
[2017-07-24] MEDS: PANTOPRAZOLE 40 MG TABLET PO SCH (12:24)
[2017-07-24] MEDS: CHOLECALCIFEROL 1,000 UNIT TAB PO SCH (12:24)
--- NOTE | 2017-07-24 12:41 | EST ---
EXERCISE STRESS DATE OF SERVICE: July 22, 2017 AGE: 41 SEX: Female HT: 63 inches WT: 219 pounds PROTOCOL: Stress Echo STAGE: III DURATION OF EXERCISE: 8 minutes HEART RATE REST: 54 BLOOD PRESSURE REST: 111/51 MAXIMUM HEART RATE ACHIEVED: 158 MAXIMUM BLOOD PRESSURE: 207/65 85% MPHR: 151 100% MPHR: 178 METS: 9.7 INDICATIONS: Chest pain. STRESS DATA: Pretesting physical examination showed a heart rate of 54, pressure is 111/51 mmHg. Baseline EKG showed sinus mechanism. The patient exercised on the treadmill according to Tong protocol for a total of 8 minutes and achieved 9.7 METS. Max heart rate was 158 which is about 88% of maximum predicted heart rate. Maximum blood pressure was 207/65 mmHg. Clinically the patient developed some shortness of breath without chest pain or chest discomfort. The EKG did not show any significant ST or T-wave abnormalities concerning for ischemia. ECHOCARDIOGRAM IMAGES: On echocardiogram images from parasternal short axis view, parasternal long axis view, apical 4 chambers and apical 2 chamber view were obtained as a baseline images, echocardiogram images showed normal wall motion abnormalities without any evidence of ischemia. CONCLUSION: 1. Good exercise capacity. 2. Normal EKG in response to exercise. 3. Normal echocardiogram in response to exercise. MMODL / IJN: [id number] /
--- NOTE | 2017-07-24 20:59 | DS ---
DISCHARGE SUMMARY DATE OF ADMISSION: 07/18/2017 DATE OF DISCHARGE: 07/24/2017 HOSPITAL COURSE: Patient was admitted. Patient apparently was seen by Dr. Foote today and discharge summary was already performed. However, I saw the patient at 8 in the morning. Please refer to his discharge summary. MMLUCILLEL / IJN: [id number] /
== END 2017-07-24 14:10 | disposition home or self-care (01) ==
LOC: EC 09:35 → 3OBS 11:40
PROVIDERS: ADMIT Family Medicine; ATTEND Family Medicine
DX: R07.89 Other chest pain (principal); G43.909 Migraine, unspecified, not intractable, without status migrainosus; K21.9 Gastro-esophageal reflux disease without esophagitis; M51.34 Other intervertebral disc degeneration, thoracic region; M43.14 Spondylolisthesis, thoracic region; Z88.1 Allergy status to other antibiotic agents; Z91.012 Allergy to eggs; Z88.8 Allergy status to other drugs, medicaments and biological substances; F17.200 Nicotine dependence, unspecified, uncomplicated; Z87.01 Personal history of pneumonia (recurrent); Z80.3 Family history of malignant neoplasm of breast; Z82.49 Family history of ischemic heart disease and other diseases of the circulatory system; Z79.899 Other long term (current) drug therapy
CPT/HCPCS: 99291 ×2; 96375 ×2; 96376 ×3; 96365 ×2; 96366 ×6; 36415; 93005; 93306; 93351; 85379; 83880; 80061; 80053; 82150; 82550; 82553; 83690; 83735; 84484; 85025; 85610; 85730 ×2; 84703; 72072; 71046; 76705; G0378 ×3; J1644 ×2; J1885; 99285

== ENCOUNTER → 2017-12-22 | Outpatient (CLI) | payer OTHER ==
--- NOTE | 2017-12-25 09:58 | MM ---
Reason for exam: screening (asymptomatic). Last mammogram was performed 1 year ago. History: Family history of breast cancer in mother at age 63 and breast cancer in maternal aunt at age 40. Benign US biopsy breast VAD LT of the left breast, December 08, 2015. Took hormonal contraceptives for 5 years. Physical Findings: A clinical breast exam by your physician is recommended on an annual basis and results should be correlated with mammographic findings. MG 3D Screening Mammo W/Cad Bilateral CC and MLO view(s) were taken. Prior study comparison: December 15, 2016, bilateral MG diagnostic mammo w CAD ANGELIA. May 26, 2016, left breast MG diagnostic mammo LT w CAD. The breast tissue is heterogeneously dense. This may lower the sensitivity of mammography. No significant changes when compared with prior studies. ASSESSMENT: Benign, BI-RAD 2 RECOMMENDATION: Routine screening mammogram of both breasts in 1 year.
== END | disposition home or self-care (01) ==
LOC: RADMAMWWP 07:54
PROVIDERS: ATTEND Obstetrics & Gynecology
DX: Z12.31 Encounter for screening mammogram for malignant neoplasm of breast (principal)
CPT/HCPCS: 77063; 77067

== ENCOUNTER → 2018-07-30 | Outpatient (CLI) | payer OTHER ==
--- NOTE | 2018-07-30 11:08 | US ---
EXAMINATION TYPE: US pelvis complete transvag DATE OF EXAM: 07/30/2018 COMPARISON: NONE CLINICAL HISTORY: R10.2 Pelvic Pain; N85.7 Hematometra. TECHNIQUE: Transvaginal (TV) and Transabdominal (TA) . Transabdominal sonographic images of the pel vis were acquired. Transvaginal sonographic images were medically necessary to better assess the fol lowing anatomy: uterus Date of LMP: 2 years prior, some spotting last month Ablation 2 years prior F/U for fluid in endometrial canal EXAM MEASUREMENTS: Uterus: 9.7 x 4.9 x 5.8 cm Endometrial Stripe: 0.6cm Right Ovary: 2.6 x 1.8 x 1.7 cm Left Ovary: 16 x 0.8 x 1.3 cm 1. Uterus: multiple nabothians, fibroid measuring 1.8 x 1.6 x 1.6cm 2. Endometrium: small amount of fluid in endometrial canal measuring 2.4 x 1.4cm 3. Right Ovary: wnl 4. Left Ovary: wnl 5. Bilateral Adnexa: wnl 6. Posterior cul-de-sac: wnl IMPRESSION: 1. Leiomyomatous change is the uterus. Small amount of endometrial canal fluid.
== END | disposition home or self-care (01) ==
LOC: RADUSWWP 09:51
PROVIDERS: ATTEND Obstetrics & Gynecology
DX: R93.89 Abnormal findings on diagnostic imaging of other specified body structures (principal); N85.7 Hematometra
CPT/HCPCS: 76830; 76856

== ENCOUNTER → 2018-12-25 | Outpatient (CLI) | payer OTHER ==
--- NOTE | 2018-12-25 11:49 | MR ---
EXAMINATION TYPE: MR knee RT wo con DATE OF EXAM: 12/25/2018 COMPARISON: Prior MRI October 16, 2014. Outside x-ray December 11, 2018. HISTORY: Pain in right knee per order. Inner and anterior knee pain sometimes on and off for 4 years with swelling per patient. TECHNIQUE: Multiplanar, multisequence images of the knee is performed without IV contrast. FINDINGS: MEDIAL MENISCUS: Anterior horn remains intact without tear. Posterior horn shows persistent triangula r increased signal sagittal image 9 and does not extend to articular surface. Medial extrusion medial meniscus coronal image 16 remains present. LATERAL MENISCUS: Anterior and posterior horns are intact without tear. CRUCIATE LIGAMENTS: The anterior and posterior cruciate ligaments are intact and unremarkable. COLLATERAL LIGAMENTS: The medial collateral ligament and lateral collateral ligament complex are inta ct and unremarkable. EXTENSOR MECHANISM: Visualized quadriceps and patellar tendons are intact. EFFUSION: Small to moderate size suprapatellar joint effusion diminished in size from prior. POPLITEAL CYST: Small multiseptated popliteal/eisenberg cyst sagittal image 12 increased in size from giuliana or.. TRICOMPARTMENT SPACES: Moderate narrowing with mild to moderate spurring patellofemoral compartment i s redemonstrated. Mild to moderate narrowing and spurring medial and lateral tibiofemoral compartment s show some interval progression from prior. CARTILAGE: Cartilaginous thinning medial tibial femoral compartment. BONE MARROW SIGNAL: No focal abnormal marrow signal is appreciated. OTHER: No additional significant abnormality is appreciated. IMPRESSION: 1. Fairly moderate tricompartment degenerative changes with some progression from 2015 MRI most promi nent medial tibiofemoral compartment presumed on the basis of osteoarthritis somewhat pronounced for patient's chronologic age. 2. Suspected intrasubstance tear posterior horn medial meniscus. No full-thickness meniscal or ligame ntous tear is seen. 3. Small multiseptated popliteal cyst more prominent from prior. 4. Small to moderate-size suprapatellar joint effusion diminished in size from prior.
== END | disposition home or self-care (01) ==
LOC: RADMRIMAIN 07:36
PROVIDERS: ATTEND Orthopaedic Surgery
DX: M17.11 Unilateral primary osteoarthritis, right knee (principal); M71.21 Synovial cyst of popliteal space [Baker], right knee

== ENCOUNTER → 2019-01-22 | Outpatient (CLI) | payer OTHER ==
[2019-01-22 16:12] LABS: Basophils % (A) 0 %; Eosinophils # (A) 0.1 k/uL (0-0.7); Eosinophils % (A) 1 %; HCT 40.2 % (34.0-46.0); HGB 13.4 gm/dL (11.4-16.0); Lymphocytes # (A) 2.4 k/uL (1.0-4.8); Lymphocytes % (A) 27 %; MCH 28.3 pg (25.0-35.0); MCHC 33.2 g/dL (31.0-37.0); MCV 85.3 fL (80.0-100.0); Mean Platelet Volume 7.5; Monocytes # (A) 0.4 k/uL (0-1.0); Monocytes % (A) 4 %; Neutrophils # (A) 5.8 k/uL (1.3-7.7); Neutrophils % (A) 66 %; Platelet Count 290 k/uL (150-450); RBC 4.71 m/uL (3.80-5.40); RDW 12.3 % (11.5-15.5); WBC 8.8 k/uL (3.8-10.6)
== END | disposition home or self-care (01) ==
LOC: LABPAT 15:48
PROVIDERS: ATTEND Orthopaedic Surgery
DX: Z01.812 Encounter for preprocedural laboratory examination (principal); M23.91 Unspecified internal derangement of right knee
CPT/HCPCS: 36415; 80051; 85025

== ENCOUNTER 2019-02-07 12:34 | Day surgery (SDC) | payer OTHER ==
[2019-02-05 12:07] VITALS: BMI 39.8
--- NOTE | 2019-02-06 16:12 | HP ---
HISTORY AND PHYSICAL DATE OF SURGERY: 02/07/2019 Lianet Ortiz is a 43-year-old patient seen with progressive right knee pain. We discussed options for treatment. She elected to proceed with right knee arthroscopy. Consent was obtained. PAST MEDICAL HISTORY: Depression. PAST SURGICAL HISTORY: 1. Appendectomy. 2. section. DAILY MEDICATIONS: Xanax. ALLERGIES: TETRACYCLINE. SOCIAL HISTORY: She smokes a half pack of cigarettes daily. PHYSICAL EVALUATION OF RIGHT KNEE: Her range of motion is 0 to 120. Mild effusion. Tenderness, medial joint line. Positive medial Yesenia's. Ligaments stable. Hip rotation without pain. Distal neurovascular exam intact. RADIOGRAPHS: Right knee radiographs revealed moderate medial compartment osteoarthritis of the right knee. MRI revealed medial meniscal tear and osteoarthritis. IMPRESSION: 1. Internal derangement of the right knee with medial meniscal tear. 2. Right knee osteoarthritis. 3. Tobacco use. PLAN: Right knee arthroscopy with partial meniscectomy and debridement. MMODL / IJN: [id number] /
[~2019-02-07 12:34] MED LIST: DEXAMETHASONE SOD PHOSPHATE 10 MG/ML 1 ML VIAL IV ONE; LACTATED RINGERS 1,000 ML IV SCH; LIDOCAINE 1% 20 ML VIAL (10MG/ML) FOR IV START INTRADERMA PRN; SCOPOLAMINE 1.5MG/72HR PATCH TRANSDERM ONE
[2019-02-07] MEDS ORDERED: ONDANSETRON 4 MG/2 ML VIAL IVP ONE (13:29)
[2019-02-07] MEDS ORDERED: fentaNYL (PF) 50 MCG/ML 2 ML AMP ONE (15:07)
[2019-02-07] MEDS ORDERED: SUCCINYLCHOLINE CHLORIDE 100 MG/5 ML SYR IV ONE (15:07)
[2019-02-07] MEDS ORDERED: LIDOCAINE 1% INJ 10MG/ML (20 ML MDV) ONE (15:07)
[2019-02-07] MEDS ORDERED: MIDAZOLAM 2 MG/2 ML VIAL ONE (15:07)
[2019-02-07] MEDS ORDERED: PROPOFOL 10 MG/ML 20 ML VIAL IV ONE (15:07)
[2019-02-07] MEDS ORDERED: BUPIVACAINE (PF) 0.25% 30 ML VIAL INTRAARTIC ONE (15:15)
[2019-02-07 16:01] VITALS: TEMP 97
--- NOTE | 2019-02-07 16:06 | P.OP ---
Date of Procedure: 02/07/19 Preoperative Diagnosis: Internal derangement right knee Postoperative Diagnosis: 1. Tear medial meniscus right knee 2. Grade 4 chondromalacia medial femoral condyle right knee 3. Grade 4 chondromalacia femoral sulcus right knee 4. Reactive synovitis medial, lateral and suprapatellar compartments right knee Procedure(s) Performed: 1. Arthroscopic partial medial meniscectomy right knee 2. Arthroscopic chondroplasty medial femoral condyle right knee 3. Arthroscopic microfracture medial femoral condyle right knee 4. Arthroscopic chondroplasty femoral sulcus right knee 5. Arthroscopic partial synovectomy medial, lateral and suprapatellar compar tments right knee Anesthesia: UVALDOA, local Surgeon: Modesto Fong Estimated Blood Loss (ml): 6 Pathology: none sent Condition: stable Disposition: PACU Indications for Procedure: 43-year-old patient seen with progressive right knee pain. After treatment options were discussed, she elected to proceed with arthroscopy. Operative Findings: See description of procedure Description of Procedure: Patient was taken to the operative suite. Patient underwent a general anesthetic by the department of anesthesia. Patient was given preoperative antibiotics. The right lower extremity was placed in a well-padded arthroscopic leg pham. The right leg was prepped and draped in the normal sterile orthopedic fashion. A lateral parapatellar and suprapatellar incision was made. Trochars were inserted. Arthroscopy was initiated. Suprapatellar pouch revealed diffuse thick reactive synovitis. The patellofemoral joint appeared to articulate congruently. There was grade 4 chondromalacia of the femoral sulcus with large osteochondral flap tear present centrally. The scope was guided into the medial gutter. No loose bodies or plica were identified. The scope was then guided into the medial compartment. A medial parapatellar incision was made. Trocar inserted followed by probe. There was a radial tear posterior medial meniscus. There were diffuse grade 4 chondromalacia changes along the weightbearing surface medial femoral condyle with an area of exposed bone centrally. There was thick reactive synovitis anteriorly. I performed a partial medial meniscectomy getting down to stable meniscal tissue. I performed a chondroplasty of the medial femoral condyle. I performed a partial synovectomy decompressing reactive synovitis anteriorly. Microfracture was performed of the medial femoral condyle in that area of exposed bone penetrating the bone with resultant bleeding at the microfracture site. The residual meniscus was stable. The residual osteochondral surface was stable. There was good decompression of the synovitis. Scope and probe were then guided into the intercondylar notch. Cruciates were identified, probed and found to be stable. The scope and probe were then guided into lateral compartment. Meniscal meniscus was stable. There was some mild grade 1 chondromalacia changes lateral femoral condyle and tibial plateau with no osteochondral flap tears present. There was some reactive synovitis anteriorly. I do see motorize shaver and performed a partial synovectomy decompressing reactive synovitis. There was good decompression of the synovitis. The scope was in guided back into the suprapatellar compartment. I introduced a motorized shaver into the suprapatellar compartment. I debrided some piecemeal fragments of meniscus I encountered. I performed a chondroplasty of the femoral sulcus getting down to stable osteochondral tissue. I performed a partial synovectomy decompressing the reactive synovitis within the suprapatellar compartment. The shaver was removed. There was good decompression of synovitis. There was grade 4 chondromalacia femoral sulcus but stable peripheral articular tissue. Instruments were now removed from the joint. The joint was infiltrated with .25% Marcaine. Steri-Strips were applied to the portal sites. Sterile dressings were applied. The patient was placed into a TOM hose. No tourniquet was utilized. The patient was awakened, transferred to a bed and taken to recovery stable satisfactory condition.
[2019-02-07] MEDS: HYDROmorphone 0.5 MG/0.5 ML SYRINGE IVP PRN ×2 (16:10→16:15)
[2019-02-07 16:43] VITALS: RESP 18
[2019-02-07 17:14] VITALS: BP 116/76; PULSE 69
== END 2019-02-07 17:37 | disposition home or self-care (01) ==
LOC: OR 12:34
PROVIDERS: ATTEND Orthopaedic Surgery
DX: S83.241A Other tear of medial meniscus, current injury, right knee, initial encounter (principal); M94.261 Chondromalacia, right knee; M65.861 Other synovitis and tenosynovitis, right lower leg; F17.210 Nicotine dependence, cigarettes, uncomplicated; M17.11 Unilateral primary osteoarthritis, right knee; F32.9 Major depressive disorder, single episode, unspecified; G43.909 Migraine, unspecified, not intractable, without status migrainosus; F39 Unspecified mood [affective] disorder; K21.9 Gastro-esophageal reflux disease without esophagitis; Z90.49 Acquired absence of other specified parts of digestive tract; Z98.891 History of uterine scar from previous surgery; Z88.1 Allergy status to other antibiotic agents; X58.XXXA Exposure to other specified factors, initial encounter; Z79.1 Long term (current) use of non-steroidal anti-inflammatories (NSAID); Z79.899 Other long term (current) drug therapy
CPT/HCPCS: 29881; 29879; 81025; J2250; J1100; J0690; J2405; J2001; J3010; J0330; J2704; J1170

== ENCOUNTER 2019-02-17 00:28 | Emergency (ER) | payer OTHER ==
[2019-02-17 00:41] VITALS: BP 110/70; PULSE 112; RESP 20; TEMP 98.4
--- NOTE | 2019-02-17 01:44 | ED ---
Extremity Problem HPI - General Chief complaint: Extremity Problem,Nontraumatic Stated complaint: R Knee Pain Time Seen by Provider: 02/17/19 00:46 Source: patient Mode of arrival: ambulatory Limitations: no limitations - History of Present Illness Initial comments: This patient is a 43-year-old woman who complains of having which she describes as a charley horse feeling to the back of her right leg. She states this been going on for number of days to up to 1 week now. The patient was concerned because she had arthroscopy of the right knee for a meniscus injury. Patient denies any associated symptoms, including no fever or chills, no chest pain, dyspnea, cough or hemoptysis. MD Complaint: extremity pain -: days(s) Location: right, lower extremity History of Same: No Radiation: none Quality: other (Like a charley horse) Consistency: intermittent Improves with: nothing Worsens with: other (Walking) Associated Symptoms: denies other symptoms - Related Data Home Medications Medication Instructions Recorded Confirmed ALPRAZolam [Xanax] 0.5 mg PO HS PRN 02/05/19 02/07/19 Cholecalciferol (Vitamin D3) 2,000 unit PO DAILY 02/05/19 02/07/19 [Vitamin D3] Ibuprofen [Motrin] 800 mg PO BID PRN 02/05/19 02/07/19 Lisdexamfetamine Dimesylate 30 mg PO QAM 02/05/19 02/07/19 [Vyvanse] Omeprazole 20 mg PO DAILY 02/05/19 02/07/19 Rizatriptan Benzoate [Maxalt] 10 mg PO DAILY PRN 02/05/19 02/07/19 Previous Rx's Medication Instructions Recorded Hydrocodone/Acetaminophen [[place] 1 each PO Q6HR PRN #15 tab 02/07/19 5-325] Allergies Allergy/AdvReac Type Severity Reaction Status Date / Time egg Allergy Unknown Verified 02/17/19 00:40 nitrofurantoin Allergy Rash/Hives Verified 02/17/19 00:40 tetracycline [Tetracycline] Allergy Rash/Hives Verified 02/17/19 00:40 Review of Systems ROS Statement: Those systems with pertinent positive or pertinent negative responses have been documented in the HPI. ROS Other: All systems not noted in ROS Statement are negative. Constitutional: Denies: fever, chills Respiratory: Denies: cough, dyspnea, hemoptysis Cardiovascular: Denies: chest pain, palpitations, dyspnea on exertion, edema, syncope Gastrointestinal: Denies: abdominal pain Musculoskeletal: Denies: back pain Skin: Denies: rash Neurological: Denies: headache, weakness Past Medical History Past Medical History: GERD/Reflux, Pneumonia Additional Past Medical History / Comment(s): migraines History of Any Multi-Drug Resistant Organisms: None Reported Past Surgical History: Orthopedic Surgery Additional Past Surgical History / Comment(s): L breast biopsy (2017) benign Past Anesthesia/Blood Transfusion Reactions: No Reported Reaction Past Psychological History: Anxiety, Bipolar, Depression Smoking Status: Current every day smoker Past Alcohol Use History: Occasional Past Drug Use History: None Reported - Past Family History Mother Family Medical History: Cancer, Hypertension Additional Family Medical History / Comment(s): Breast cancer dx 2018 Father History Unknown: Yes General Exam Limitations: no limitations General appearance: alert, in no apparent distress Eye exam: Present: normal appearance Respiratory exam: Present: normal lung sounds bilaterally. Absent: respiratory distress, wheezes, rales, rhonchi, stridor Cardiovascular Exam: Present: regular rate, normal rhythm, normal heart sounds. Absent: systolic murmur, diastolic murmur, rubs, gallop Extremities exam: Present: normal inspection, normal capillary refill, other (There is no palpable cord or Homans sign. The patient's surgical site appears normal. Incision clean dry and intact no abnormal erythema, warmth, or drainage.). Absent: tenderness, pedal edema, calf tenderness Neurological exam: Absent: motor sensory deficit Skin exam: Present: warm, dry, intact, normal color. Absent: rash Course Vital Signs 02/17/19 00:37 Temperature 98.4 F Pulse Rate 112 H Respiratory 20 Rate Blood Pressure 110/70 O2 Sat by Pulse 97 Oximetry Medical Decision Making - Lab Data Lab Results 02/17/19 Range/Units 01:17 D-Dimer 0.24 (<0.60) mg/L FEU Disposition Clinical Impression: Muscle strain Disposition: HOME SELF-CARE Condition: Good Instructions (If sedation given, give patient instructions): Muscle Strain (DC) Is patient prescribed a controlled substance at d/c from ED?: No Referrals: Jeremias Frey DO [Primary Care Provider] - 1-2 days
== END 2019-02-17 02:15 | disposition home or self-care (01) ==
LOC: EC 00:28
DX: S86.911A Strain of unspecified muscle(s) and tendon(s) at lower leg level, right leg, initial encounter (principal); F41.9 Anxiety disorder, unspecified; F31.9 Bipolar disorder, unspecified; Z79.899 Other long term (current) drug therapy; F17.200 Nicotine dependence, unspecified, uncomplicated; Z88.1 Allergy status to other antibiotic agents; Z91.012 Allergy to eggs; X58.XXXA Exposure to other specified factors, initial encounter
CPT/HCPCS: 36415; 85379; 99283

== ENCOUNTER → 2019-08-29 | Outpatient (CLI) | payer OTHER ==
--- NOTE | 2019-09-03 10:50 | MM ---
Reason for exam: screening (asymptomatic). Last mammogram was performed 1 year and 8 months ago. History: Patient is postmenopausal. Family history of breast cancer in mother at age 63 and breast cancer in maternal aunt at age 40. Benign US biopsy breast VAD LT of the left breast, December 08, 2015. Took hormonal contraceptives for 5 years. Physical Findings: A clinical breast exam by your physician is recommended on an annual basis and results should be correlated with mammographic findings. MG 3D Screening Mammo W/Cad Bilateral CC and MLO view(s) were taken. Prior study comparison: December 22, 2017, bilateral MG 3d screening mammo w/cad. December 15, 2016, bilateral MG diagnostic mammo w CAD ANGELIA. The breast tissue is extremely dense which could obscure a lesion on mammography. There are smaller round, oval, circumscribed bilateral masses. Benign appearing bilateral calcifications. No suspicious abnormality. Left biopsy marker noted. ASSESSMENT: Benign, BI-RAD 2 RECOMMENDATION: Routine screening mammogram of both breasts in 1 year.
== END | disposition home or self-care (01) ==
LOC: RADMAMWWP 13:53
PROVIDERS: ATTEND Family Medicine
DX: Z12.31 Encounter for screening mammogram for malignant neoplasm of breast (principal)
CPT/HCPCS: 77063; 77067

== ENCOUNTER → 2019-12-04 | Outpatient (CLI) | payer OTHER ==
--- NOTE | 2019-12-04 13:37 | XR ---
EXAMINATION TYPE: XR thoracic spine 2V DATE OF EXAM: 12/04/2019 COMPARISON: NONE HISTORY: Pain TECHNIQUE: 3 views submitted FINDINGS: Alignment is anatomic. There is no compression deformities. Mild hypertrophic and degenerative oconnell es of the vertebral column. No compression deformities. IMPRESSION: 1. Multilevel mild degenerative disc disease.
== END | disposition home or self-care (01) ==
LOC: RADXRMAIN 12:47
PROVIDERS: ATTEND Family Medicine
DX: M51.34 Other intervertebral disc degeneration, thoracic region (principal)
CPT/HCPCS: 72070

== ENCOUNTER 2019-12-09 20:42 | Emergency (ER) | payer OTHER ==
[2019-12-09 20:53] VITALS: RESP 18; TEMP 98.1
[2019-12-09] MEDS ORDERED: SODIUM CHLORIDE 0.9% 1,000 ML IV STA (21:03)
[2019-12-09] MEDS ORDERED: MAG HYDROX/AL HYDROX/SIMETH 30 ML, HYOSCYAMINE ELIXIR 10 ML, LIDOCAINE VISCOUS 2% 10 ML PO STA ×3 (21:04)
--- NOTE | 2019-12-09 21:07 | ED ---
Back Pain HPI - General Chief Complaint: Back Pain/Injury Stated Complaint: Back Pain Time Seen by Provider: 12/09/19 20:55 Source: patient Limitations: no limitations - History of Present Illness Initial Comments: 44-year-old female patient presents to the emergency department today for evaluation of upper back pain. Patient states the pain is been present for the last 3 weeks. Patient states the pain is constant does seem to improve somewhat when she is up walking around. Patient states that the pain worsens significantly when she is lying down. Patient states she was started having some shortness of breath with this especially with activity. She also reports a "band" like feeling around her chest. Patient states that she does take Motrin on a daily basis for arthritis pain. States that the pain does improve somewhat with eating, but returns when she is not eating. States that she does have some right leg swelling but this is usual for her with her arthritis. She has had C- section the past and no other abdominal surgeries. She has had thoracic spinal x-ray and urinalysis testing with her primary physician which are both unremarkable. She has seen a chiropractor and had adjustments without relief. States she tried a muscle relaxer which did not help either. Patient denies any recent rash, fever, chills, cough, abdominal pain, nausea, vomiting, diarrhea, constipation, back pain, numbness, tingling, dizziness, weakness, hematuria, dysuria, urinary urgency, urinary frequency, headache, visual changes, or any other complaints. - Related Data Home Medications Medication Instructions Recorded Confirmed ALPRAZolam [Xanax] 0.5 mg PO HS PRN 02/05/19 12/09/19 Lisdexamfetamine Dimesylate 30 mg PO QAM 02/05/19 12/09/19 [Vyvanse] Rizatriptan Benzoate [Maxalt] 10 mg PO DAILY PRN 02/05/19 12/09/19 Acetaminophen Tab [Tylenol Tab] 1,000 mg PO Q6HR 12/09/19 12/09/19 Loratadine [Claritin] 10 mg PO DAILY PRN 12/09/19 12/09/19 predniSONE See Taper PO DIRECTED 12/09/19 12/09/19 Previous Rx's Medication Instructions Recorded Diazepam [Valium] 5 mg PO TID PRN 3 Days #9 tab 12/09/19 Hydrocodone/Acetaminophen [[place] 1 tab PO Q6HR PRN #12 tab 12/09/19 5-325] Allergies Allergy/AdvReac Type Severity Reaction Status Date / Time egg Allergy Unknown Verified 12/09/19 21:39 nitrofurantoin Allergy Rash/Hives Verified 12/09/19 21:39 tetracycline [Tetracycline] Allergy Rash/Hives Verified 12/09/19 21:39 Review of Systems ROS Statement: Those systems with pertinent positive or pertinent negative responses have been documented in the HPI. ROS Other: All systems not noted in ROS Statement are negative. Past Medical History Past Medical History: GERD/Reflux, Pneumonia Additional Past Medical History / Comment(s): migraines History of Any Multi-Drug Resistant Organisms: None Reported Past Surgical History: Orthopedic Surgery Additional Past Surgical History / Comment(s): L breast biopsy (2017) benign Past Anesthesia/Blood Transfusion Reactions: No Reported Reaction Past Psychological History: Anxiety, Bipolar, Depression Smoking Status: Current every day smoker Past Alcohol Use History: Occasional Past Drug Use History: None Reported - Past Family History Mother Family Medical History: Cancer, Hypertension Additional Family Medical History / Comment(s): Breast cancer dx 2018 Father History Unknown: Yes General Exam Limitations: no limitations General appearance: alert, in no apparent distress, other (This is a well- developed, well-nourished adult female patient in no acute distress. Vital signs upon presentation are temperature 98.1F, pulse 96, respirations 18, blood pressure 131/87, pulse ox 98% on room air.) Neck exam: Present: normal inspection. Absent: tenderness, meningismus, lymphadenopathy Respiratory exam: Present: normal lung sounds bilaterally. Absent: respiratory distress, wheezes, rales, rhonchi, stridor Cardiovascular Exam: Present: regular rate, normal rhythm, normal heart sounds. Absent: systolic murmur, diastolic murmur, rubs, gallop, clicks GI/Abdominal exam: Present: soft, tenderness (Right upper quadrant), normal bowel sounds. Absent: distended, guarding, rebound, rigid Back exam: Present: normal inspection. Absent: paraspinal tenderness, vertebral tenderness Neurological exam: Present: alert, oriented X3, CN II-XII intact Psychiatric exam: Present: normal affect, normal mood Skin exam: Present: warm, dry, intact, normal color. Absent: rash Course Vital Signs 12/09/19 20:47 Temperature 98.1 F Pulse Rate 96 Respiratory 18 Rate Blood Pressure 131/87 O2 Sat by Pulse 98 Oximetry Medical Decision Making - Medical Decision Making 44-year-old female patient presented to the emergency department today for evaluation of thoracic back pain. She is also reporting symptoms of shortness of breath. Physical examination reveals clear equal lung sounds. Abdomen does reveal mild tenderness to the right upper quadrant. Labs reviewed and are unremarkable. HCG is negative. Troponins negative. EKG shows no ST elevation or depression. Did perform CT angiography of the chest which was negative as well. I did discuss findings and results with the patient. We will give a trial of pain medication. She'll be discharged follow-up with her primary care physician clin application specialist for possible mechanical back pain. Return parameters were discussed in detail. She verbalizes understanding and agrees with this plan. - Lab Data Result diagrams: 12/09/19 21:13 12/09/19 21:13 Lab Results 12/09/19 12/09/19 12/09/19 Range/Units 21:13 21:13 21:13 WBC 11.6 H (3.8-10.6) k/uL RBC 4.91 (3.80-5.40) m/uL Hgb 14.1 (11.4-16.0) gm/dL Hct 42.3 (34.0-46.0) % MCV 86.0 (80.0-100.0) fL MCH 28.6 (25.0-35.0) pg MCHC 33.3 (31.0-37.0) g/dL RDW 12.6 (11.5-15.5) % Plt Count 308 (150-450) k/uL Neutrophils % 68 % Lymphocytes % 25 % Monocytes % 4 % Eosinophils % 1 % Basophils % 1 % Neutrophils # 7.9 H (1.3-7.7) k/uL Lymphocytes # 2.9 (1.0-4.8) k/uL Monocytes # 0.5 (0-1.0) k/uL Eosinophils # 0.1 (0-0.7) k/uL Basophils # 0.1 (0-0.2) k/uL Sodium (137-145) mmol/L Potassium (3.5-5.1) mmol/L Chloride (98-107) mmol/L Carbon Dioxide (22-30) mmol/L Anion Gap mmol/L BUN (7-17) mg/dL Creatinine (0.52-1.04) mg/dL Est GFR (CKD-EPI)AfAm (>60 ml/min/1.73 sqM) Est GFR (CKD-EPI)NonAf (>60 ml/min/1.73 sqM) Glucose (74-99) mg/dL Calcium (8.4-10.2) mg/dL Total Bilirubin (0.2-1.3) mg/dL AST (14-36) U/L ALT (4-34) U/L Alkaline Phosphatase (38-126) U/L Troponin I (0.000-0.034) ng/mL Total Protein (6.3-8.2) g/dL Albumin (3.5-5.0) g/dL Amylase (30-110) U/L Lipase (23-300) U/L Urine Color Yellow Urine Appearance Clear (Clear) Urine pH 5.5 (5.0-8.0) Ur Specific [place] 1.023 (1.001-1.035) Urine Protein Negative (Negative) Urine Glucose (UA) Negative (Negative) Urine Ketones Negative (Negative) Urine Blood Small H (Negative) Urine Nitrite Negative (Negative) Urine Bilirubin Negative (Negative) Urine Urobilinogen <2.0 (<2.0) mg/dL Ur Leukocyte Esterase Negative (Negative) Urine RBC 7 H (0-5) /hpf Urine WBC 1 (0-5) /hpf Ur Squamous Epith Cells 4 (0-4) /hpf Urine Bacteria Rare H (None) /hpf Urine Mucus Occasional H (None) /hpf Urine HCG, Qual Not Detected (Not Detectd) 12/09/19 12/09/19 Range/Units 21:13 21:13 WBC (3.8-10.6) k/uL RBC (3.80-5.40) m/uL Hgb (11.4-16.0) gm/dL Hct (34.0-46.0) % MCV (80.0-100.0) fL MCH (25.0-35.0) pg MCHC (31.0-37.0) g/dL RDW (11.5-15.5) % Plt Count (150-450) k/uL Neutrophils % % Lymphocytes % % Monocytes % % Eosinophils % % Basophils % % Neutrophils # (1.3-7.7) k/uL Lymphocytes # (1.0-4.8) k/uL Monocytes # (0-1.0) k/uL Eosinophils # (0-0.7) k/uL Basophils # (0-0.2) k/uL Sodium 139 (137-145) mmol/L Potassium 3.6 (3.5-5.1) mmol/L Chloride 106 (98-107) mmol/L Carbon Dioxide 26 (22-30) mmol/L Anion Gap 7 mmol/L BUN 15 (7-17) mg/dL Creatinine 0.81 (0.52-1.04) mg/dL Est GFR (CKD-EPI)AfAm >90 (>60 ml/min/1.73 sqM) Est GFR (CKD-EPI)NonAf 89 (>60 ml/min/1.73 sqM) Glucose 106 H (74-99) mg/dL Calcium 10.0 (8.4-10.2) mg/dL Total Bilirubin 0.4 (0.2-1.3) mg/dL AST 14 (14-36) U/L ALT 12 (4-34) U/L Alkaline Phosphatase 50 (38-126) U/L Troponin I <0.012 (0.000-0.034) ng/mL Total Protein 7.2 (6.3-8.2) g/dL Albumin 4.5 (3.5-5.0) g/dL Amylase 42 (30-110) U/L Lipase 125 (23-300) U/L Urine Color Urine Appearance (Clear) Urine pH (5.0-8.0) Ur Specific [place] (1.001-1.035) Urine Protein (Negative) Urine Glucose (UA) (Negative) Urine Ketones (Negative) Urine Blood (Negative) Urine Nitrite (Negative) Urine Bilirubin (Negative) Urine Urobilinogen (<2.0) mg/dL Ur Leukocyte Esterase (Negative) Urine RBC (0-5) /hpf Urine WBC (0-5) /hpf Ur Squamous Epith Cells (0-4) /hpf Urine Bacteria (None) /hpf Urine Mucus (None) /hpf Urine HCG, Qual (Not Detectd) - EKG Data -: EKG Interpreted by Me EKG Comments: EKG obtained at 2204 shows normal sinus rhythm with a ventricular rate is 73, GA interval 146, QRS duration 78, QT 404, QTC 445. No evidence of ST elevation or depression. - Radiology Data Radiology results: report reviewed, image reviewed Disposition Clinical Impression: Thoracic back pain Disposition: HOME SELF-CARE Condition: Good Instructions (If sedation given, give patient instructions): Back Pain (ED) Additional Instructions: Take medications as directed. Follow-up with your primary care physician and orthopedics specialist for further evaluation as soon as possible. Return to the emergency department immediately for any new, worsening, or concerning symptoms. Prescriptions: Hydrocodone/Acetaminophen [[place] 5-325] 1 tab PO Q6HR PRN #12 tab PRN Reason: Pain Diazepam [Valium] 5 mg PO TID PRN 3 Days #9 tab PRN Reason: Muscle Spasm Is patient prescribed a controlled substance at d/c from ED?: No Referrals: Jeremias Frey DO [Primary Care Provider] - 1-2 days True Jimenez DO [Doctor of Osteopathic Medicine] - 1-2 days Time of Disposition: 22:38
[2019-12-09 21:34] LABS: Basophils # (A) 0.1 k/uL (0-0.2); Basophils % (A) 1 %; Eosinophils # (A) 0.1 k/uL (0-0.7); Eosinophils % (A) 1 %; HCT 42.3 % (34.0-46.0); HGB 14.1 gm/dL (11.4-16.0); Lymphocytes # (A) 2.9 k/uL (1.0-4.8); Lymphocytes % (A) 25 %; MCH 28.6 pg (25.0-35.0); MCHC 33.3 g/dL (31.0-37.0); Monocytes # (A) 0.5 k/uL (0-1.0); Monocytes % (A) 4 %; Neutrophils # (A) 7.9 k/uL (1.3-7.7); Neutrophils % (A) 68 %; Platelet Count 308 k/uL (150-450); RBC 4.91 m/uL (3.80-5.40); RDW 12.6 % (11.5-15.5); WBC 11.6 k/uL (3.8-10.6)
[2019-12-09 21:43] LABS: ALT 12 U/L (4-34); AST 14 U/L (14-36); African American GFR (CKD) >90 (>60 ml/min/1.73 sqM); Albumin 4.5 g/dL (3.5-5.0); Alkaline Phosphatase 50 U/L (38-126); Amylase 42 U/L (30-110); Anion Gap 7 mmol/L; Blood Urea Nitrogen 15 mg/dL (7-17); Carbon Dioxide 26 mmol/L (22-30); Chloride 106 mmol/L (98-107); Glucose 106 mg/dL (74-99); Non-African American GFR(CKD) 89 (>60 ml/min/1.73 sqM); Potassium 3.6 mmol/L (3.5-5.1); Sodium 139 mmol/L (137-145); Total Bilirubin 0.4 mg/dL (0.2-1.3); Total Protein 7.2 g/dL (6.3-8.2)
[2019-12-09 21:57] LABS: Appearance,Urine Clear (Clear); Bacteria,Urine Rare /hpf; Bilirubin,Urine Negative (Negative); Blood,Urine Small (Negative); Color,Urine Yellow; Glucose,Urine (UA) Negative (Negative); Ketones,Urine Negative (Negative); Leukocyte Esterase,Urine Negative (Negative); Mucus,Urine Occasional /hpf; Nitrite,Urine Negative (Negative); PH, Urine 5.5 (5.0-8.0); Protein,Urine Negative (Negative); RBC,Urine 7 /hpf (0-5); Specific Gravity,Urine 1.023 (1.001-1.035); Squamous Epithelial Cell,Urine 4 /hpf (0-4); Urobilinogen,Urine <2.0 mg/dL (<2.0); WBC,Urine 1 /hpf (0-5)
--- NOTE | 2019-12-09 22:16 | CT ---
EXAMINATION TYPE: CT chest angio for PE DATE OF EXAM: 12/09/2019 COMPARISON: None HISTORY: SOB, upper back pain CT DLP: 399.2 mGycm Automated exposure control for dose reduction was used. CONTRAST: Performed with IV Contrast, patient injected with 80 mL of Isovue 370. Lung bases are clear. There is no pleural effusion. Heart size is normal. There is no pericardial eff usion. There are no hilar masses. There is no mediastinal adenopathy. Thoracic aorta appears intact. There is no aneurysm or dissection. There is normal contrast opacifica tion of the pulmonary arteries. There are no filling defects. There is no evidence of a pulmonary mas s. There is no pneumothorax. Thoracic spine is intact. There is no compression fracture. Sternum is intact. Ribs appear intact. IMPRESSION: Negative exam. No evidence of pulmonary embolism.
[2019-12-09] MEDS ORDERED: KETOROLAC 15 MG/ML 1 ML VIAL IVP STA (22:22)
[2019-12-09] MEDS ORDERED: ACET/COD 300 MG/30 MG STARTER PACK 6 TAB BTL PO STA (22:45)
[2019-12-09 22:53] VITALS: BP 129/79; PULSE 89
== END 2019-12-09 22:55 | disposition home or self-care (01) ==
LOC: EC 20:42
DX: M54.6 Pain in thoracic spine (principal); M79.89 Other specified soft tissue disorders; R06.02 Shortness of breath; F41.9 Anxiety disorder, unspecified; F31.9 Bipolar disorder, unspecified; G43.909 Migraine, unspecified, not intractable, without status migrainosus; F17.200 Nicotine dependence, unspecified, uncomplicated; Z79.899 Other long term (current) drug therapy; Z79.52 Long term (current) use of systemic steroids; Z91.012 Allergy to eggs; Z88.1 Allergy status to other antibiotic agents; Z88.8 Allergy status to other drugs, medicaments and biological substances
CPT/HCPCS: 36415; 93005; 80053; 82150; 83690; 84484; 85025; 81001; 81025; 71275; 99284; 96374; 96361; J1885; Q9967

== ENCOUNTER → 2020-01-08 | Outpatient (CLI) | payer OTHER ==
--- NOTE | 2020-01-08 22:50 | MR ---
EXAMINATION TYPE: MR thoracic spine wo con DATE OF EXAM: 01/08/2020 COMPARISON: CT chest December 09, 2019 HISTORY: Mid back pain radiating into chest TECHNIQUE: Multiplanar, multisequence imaging of thoracic spine is performed without contrast FINDINGS: Spinal cord shows normal course, caliber, and signal as it courses the thoracic spine. Ve rtebral body heights and alignment are satisfactory. Disc space heights fairly well maintained. Tiny posterior disc herniation effaces the anterior thecal sac at T10-T11 level sagittal image 8. There is mild multilevel anterior spurring. Bone marrow signal intensity is maintained. Review of the axial images shows no significant spinal canal stenosis or neural foraminal narrowing a t any thoracic level. There is confirmation of a left paracentral disc protrusion effacing the anter olateral thecal sac axial image 7 at the T10-T11 level. No significant additional disc herniation is evident. Visualized thorax and upper abdomen show no suspicious abnormality. IMPRESSION: Mild multilevel anterior spurring. Tiny disc herniation T10-T11 level.
== END | disposition home or self-care (01) ==
LOC: RADMRIMAIN 11:53
PROVIDERS: ATTEND Orthopaedic Surgery
DX: M51.24 Other intervertebral disc displacement, thoracic region (principal)
CPT/HCPCS: 72146

== ENCOUNTER → 2020-07-08 | Outpatient (CLI) | payer OTHER | END | disposition home or self-care (01) | LOC: LABPAT 13:53 | PROVIDERS: ATTEND Orthopaedic Surgery | DX: Z01.812 Encounter for preprocedural laboratory examination (principal) | CPT/HCPCS: 87070 ==

== ENCOUNTER 2020-07-13 10:36 | Observation (INO) | payer OTHER ==
[2020-07-06 11:32] VITALS: BMI 36.5
--- NOTE | 2020-07-12 12:19 | HP ---
HISTORY AND PHYSICAL REASON FOR ADMISSION: Surgery scheduled 07/13/2020 HISTORY OF PRESENT ILLNESS: Lianet Ortiz is a 44-year-old patient seen with symptomatic right knee osteoarthritis. We discussed options for treatment. She elected to proceed with right total knee arthroplasty. Consent was obtained. Medical clearance provided by Dr. Jeremias Frey. PAST MEDICAL HISTORY: Depression. PAST SURGICAL HISTORY: Appendectomy, section. MEDICATIONS: Vyvanse, Xanax. ALLERGIES: TETRACYCLINE, NITROFURANTOIN. SOCIAL HISTORY: She denies tobacco use. PHYSICAL EVALUATION OF THE RIGHT KNEE: Range of motions is -2 to 90, mild effusion. Tenderness along the medial joint line. Crepitus along the medial patellofemoral compartments. Pain with patellofemoral compression. Ligaments stable. Hip rotation without pain. Distal neurovascular exam is intact. RADIOGRAPHS: Right knee radiographs reveal severe osteoarthritic changes. IMPRESSION: Right knee osteoarthritis. PLAN: Right total knee arthroplasty. MMODL / IJN: [id number] /
[~2020-07-13 10:36] MED LIST changes: +ACETAMINOPHEN TAB 500 MG TAB PO PRN; -DEXAMETHASONE SOD PHOSPHATE 10 MG/ML 1 ML VIAL IV ONE; -LACTATED RINGERS 1,000 ML IV SCH; +LIDOCAINE 1% (10MG/ML) FOR IV START INTRADERMA PRN; -LIDOCAINE 1% 20 ML VIAL (10MG/ML) FOR IV START INTRADERMA PRN; +MELOXICAM 7.5 MG TAB PO PRN; +MIDAZOLAM 2 MG/2 ML VIAL IV PRN; +ROPIVACAINE/EPI/CLONIDINE/KET 50 ML SYRINGE MISCELLANE PRN; -SCOPOLAMINE 1.5MG/72HR PATCH TRANSDERM ONE; +TRANEXAMIC ACID 1,000 MG in SODIUM CHLORIDE 0.9% 100 ML IVPB PRN
[2020-07-13] MEDS: LACTATED RINGERS 1,000 ML IV SCH (12:22)
[2020-07-13] MEDS ORDERED: ONDANSETRON 4 MG/2 ML VIAL ONE (12:28)
[2020-07-13] MEDS ORDERED: ROPIVACAINE 0.2%-NS ON-Q PUMP 1,090 MG, EMPTY PAIN BALL 1 EACH MISCELLANE PRN (13:08)
[2020-07-13] MEDS ORDERED: MIDAZOLAM 2 MG/2 ML VIAL IV ONE (13:23)
[2020-07-13] MEDS ORDERED: ONDANSETRON 4 MG/2 ML VIAL IVP ONE (14:08)
[2020-07-13] MEDS ORDERED: DEXAMETHASONE SOD PHOSPHATE 4 MG/ML 1 ML VIAL IV ONE (14:08)
--- NOTE | 2020-07-13 14:08 | P.ANPRN ---
Procedure Note - Anesthesia - Nerve Block Performed Right Adductor Canal Infusion Time Out Performed: Yes Date of Procedure: 07/13/20 Procedure Start Time: 13:34 Procedure Stop Time: 13:48 Location of Patient: PreOp Indication: Acute Post-Operative Pain, Requested by Surgeon Sedation Type: Sedate with meaningful contact maintained Preparation: Sterile Prep, Sterile Dressing Position: Supine Catheter: Indwelling Needle Types: Taylor Needle Gauge: 18 Ultrasound used to visualize needle placement: Yes Ultrasound used to observe medication spread: Yes Injectate: 0.5% Ropivacaine (see comment for volume) (20 ml) Blood Aspirated: No Pain Paresthesia on Injection Noted: No Resistance on Injection: Normal Image Stored and Saved: Yes Events: Uneventful and Well Tolerated Right iPack Single Date of Procedure: 07/13/20 Procedure Start Time: 13:23 Procedure Stop Time: 13:31 Location of Patient: PreOp Indication: Acute Post-Operative Pain, Requested by Surgeon Sedation Type: Sedate with meaningful contact maintained Preparation: Sterile Prep, Sterile Dressing Position: Left Lateral Catheter: None (rtd) Needle Types: Facet Needle Gauge: 20, 21 Ultrasound used to visualize needle placement: Yes Ultrasound used to observe medication spread: Yes Injectate: 0.5% Ropivacaine (see comment for volume) (20 ml + decadron 4 mg) Blood Aspirated: No Pain Paresthesia on Injection Noted: No Resistance on Injection: Normal Image Stored and Saved: Yes Events: Uneventful and Well Tolerated
[2020-07-13] MEDS ORDERED: ROPIVACAINE 5 MG/ML 30 ML VIAL ONE (15:36)
[2020-07-13] MEDS ORDERED: HYDROmorphone (PF) 1 MG/ML ONE (15:36)
[2020-07-13] MEDS ORDERED: MIDAZOLAM 2 MG/2 ML VIAL ONE (15:36)
[2020-07-13] MEDS ORDERED: SODIUM CHLORIDE 0.9% 100 ML BAG ONE (15:36)
[2020-07-13] MEDS ORDERED: fentaNYL (PF) 50 MCG/ML 2 ML AMP ONE (15:36)
[2020-07-13] MEDS ORDERED: TRANEXAMIC ACID 1,000 MG/10 ML VIAL ONE (15:36)
[2020-07-13] MEDS ORDERED: DEXAMETHASONE SOD PHOSPHATE 4 MG/ML 1 ML VIAL ONE (15:36)
[2020-07-13] MEDS ORDERED: PHENYLEPHRINE-0.9% NACL SYG 1,000 MCG/10 ML SYRINGE ONE (15:36)
[2020-07-13] MEDS ORDERED: PROPOFOL 10 MG/ML 20 ML VIAL IV ONE (15:36)
[2020-07-13] MEDS ORDERED: ceFAZolin 1,000 MG in SODIUM CHLORIDE 0.9% 1,000 ML IRRIGATION ONE (16:06)
[2020-07-13] MEDS ORDERED: LACTATED RINGERS 1,000 ML IV ONE ×2 (16:18→19:07)
[2020-07-13] MEDS ORDERED: HYDROmorphone 0.5 MG/0.5 ML SYRINGE IVP PRN (17:13)
[2020-07-13] MEDS ORDERED: HYDROcodone/APAP 5-325MG 1 EACH TAB PO PRN (17:13)
[2020-07-13] MEDS ORDERED: NALOXONE 0.4 MG/ML 1 ML VIAL IV PRN (17:13)
[2020-07-13] MEDS ORDERED: HYDROmorphone 0.2 MG/1 ML SYRINGE IVP PRN (17:13)
--- NOTE | 2020-07-13 17:13 | P.OP ---
Date of Procedure: 07/13/20 Preoperative Diagnosis: Right knee osteoarthritis Postoperative Diagnosis: Right knee osteoarthritis Procedure(s) Performed: Right total knee arthroplasty Implants: 1. Depuy attune size 5 right cruciate retaining cemented femur 2. Depuy attune size 4 fixed bearing cemented tibial baseplate 3. Depuy attune size 5 fixed bearing cruciate retaining 12 mm polyethylene tibial insert 4. Marie attune 35 mm all polyethylene cemented patella Anesthesia: regional (Adductor canal catheter, I pack block), spinal Surgeon: Modesto Fong Contact Acid Plant Operator #1: Uziel Carty Estimated Blood Loss (ml): 50 Pathology: other (bone) Condition: stable Disposition: PACU Indications for Procedure: 44-year-old patient seen with symptomatic right knee osteoarthritis. After treatment options were discussed, she elected to proceed with total knee arthroplasty. Operative Findings: See description of procedure Description of Procedure: Patient was taken to the operative suite after having an adductor canal catheter placed by the department of anesthesia. Patient underwent a spinal anesthetic by the department of anesthesia. Patient was given preoperative IV intake antibiotics and TXA. A well-padded tourniquet was placed about the right lower extremity. The lower extremity was then prepped and draped in the normal sterile orthopedic fashion. The extremity was elevated, a tourniquet was insufflated to 300. A standard anterior incision was made sharply through skin. Dissection was taken down through the subcutaneous soft tissues down to the extensor mechanism. A medial arthrotomy was performed, patella was everted and knee was flexed. There was advanced osteoarthritis noted. I introduced my distal intramedullary femoral drill. I then introduced the distal femoral cu tting jig. Que LOWERY secured the cutting jig with 2 pins. I held retractors in position while Que LOWERY performed the distal femoral resection through the guide area we now removed her distal femoral cutting guide. We now placed our 4-in-1 femoral cutting block and positioned and it was secured with 2 pins by Que LOWERY while I held the block in position. The distal femoral finishing was now completed. A proximal tibial cutting guide was positioned. I held the guide in the appropriate position with both hands well Que LOWERY inserted stabilizing pins into the guide. Proximal tibial cut was made. We now placed a trial femoral component into position, along with an appropriate size tibial tray and insert. We now took the knee through range of motion and had full extension good flexion and good overall soft tissue balance noted. The patella was everted and stabilized with 2 towel clips held by Que LOWERY while I performed a flush with patellar quad tendon utilizing a fresh sawblade. We templated the patella, appropriate drill holes were made. An appropriate trial patella was positioned, knee was taken through full range of motion with the patella tracking very nicely. The trial patella was removed. Drill holes were made through the femoral component. All trial components were removed after marking off the appropriate rotation of the tibia. Retractors were now positioned along the proximal tibia. An appropriate keel punch was made with the appropriate size tibial guide by myself on Que LOWERY assisted by holding retractors. At this point appropriate size implants were chosen and opened. The joint was irrigated copiously with pulse lavage mechanical irrigation. The posterior capsule was infiltrated with local analgesic. The wound was irrigated with pulse lavage mechanical irrigation. We mixed antibiotic methylmethacrylate. We placed the knee into flexion. We placed multiple retractors assisted by Que LOWERY to expose the proximal tibia. Once the methyl methacrylate was ready, the tibial component was cemented into place removing any excess methylmethacrylate form by both myself and Que LOWERY. The femoral component was cemented into place removing the removing any excess methylmethacrylate performed by both myself and Que LOWERY. We then inserted the appropriate size polyethylene tibial insert. We made sure that it was locked into position. We took the knee into full extension, and then back in a flexion making sure we had removed any excess methylmethacrylate. The patellar component was then cemented down and secured with clamp. Excess methylmethacrylate removed. We kept the knee in full extension, patellar clamp in position until methylmethacrylate had hardened. Once it had hardened the patellar clamp was removed. The knee was taken through full range of motion. The patella tracked nicely. There was good soft tissue balancing. The tourniquet was now released. Additional hemostasis was achieved via electrocautery. A second gram of TXA was given. The wound again was irrigated with pulse lavage mechanical irrigation. The superficial soft tissues were infiltrated local analgesic. The extensor mechanism was repaired with Vicryl. We checked the repair with range of motion and it was stable. The subcutaneous soft tissues were repaired with Vicryl in layers. The skin was approximated with pernio/Dermabond. Sterile dressings were applied followed by loose web roll and Angel bandage. The patient was transferred to a bed, and taken to recovery in stable and satisfactory condition. Que LOWERY assisted with this complex procedure.
[2020-07-13] MEDS: fentaNYL (PF) 50 MCG/ML 2 ML AMP IVP ONE ×2 (17:53→18:00)
[2020-07-13] MEDS ORDERED: KETOROLAC 15 MG/ML 1 ML VIAL IVP ONE (17:57)
[2020-07-13] MEDS: HYDROmorphone 0.5 MG/0.5 ML SYRINGE IVP PRN ×2 (18:47→19:00)
[2020-07-13] MEDS: HYDROcodone/APAP 7.5-325MG 1 EACH TAB PO PRN (20:07)
--- NOTE | 2020-07-13 22:28 | XR ---
EXAMINATION TYPE: XR knee limited RT DATE OF EXAM: 07/13/2020 CLINICAL HISTORY: Right knee pain and arthritis status post total knee replacement. TECHNIQUE: Portable AP and crosstable lateral views of the right knee are obtained immediately posto peratively. COMPARISON: 02/04/2020 FINDINGS: Metallic hardware from total right knee arthroplasty is seen and appears satisfactory in a lignment and position. There is evidence of recent surgery with diffuse soft tissue gas. No unexpect ed radiopaque foreign body. No displaced acute osseous abnormality. IMPRESSION: METALLIC HARDWARE FROM TOTAL RIGHT KNEE ARTHROPLASTY IS SATISFACTORY IN ALIGNMENT.
[2020-07-14] MEDS: HYDROmorphone 0.5 MG/0.5 ML SYRINGE IVP PRN ×2 (00:37→18:25)
[2020-07-14] MEDS: LACTATED RINGERS 1,000 ML IV SCH ×4 (02:00→13:17)
[2020-07-14] MEDS: SENNOSIDES-DOCUSATE SODIUM 1 EACH TAB PO SCH ×2 (02:02→19:49)
[2020-07-14] MEDS: ENOXAPARIN 30 MG/0.3 ML SYRINGE SQ SCH ×3 (02:02→19:49)
[2020-07-14] MEDS: HYDROcodone/APAP 7.5-325MG 1 EACH TAB PO PRN ×4 (02:07→19:49)
[2020-07-14 06:19] LABS: Basophils % (A) 0 %; Eosinophils % (A) 0 %; HCT 38.1 % (34.0-46.0); HGB 13.1 gm/dL (11.4-16.0); Lymphocytes # (A) 1.3 k/uL (1.0-4.8); Lymphocytes % (A) 8 %; MCH 29.4 pg (25.0-35.0); MCHC 34.4 g/dL (31.0-37.0); MCV 85.7 fL (80.0-100.0); Mean Platelet Volume 8.3; Monocytes # (A) 0.4 k/uL (0-1.0); Monocytes % (A) 3 %; Neutrophils # (A) 14.8 k/uL (1.3-7.7); Neutrophils % (A) 89 %; Platelet Count 284 k/uL (150-450); RBC 4.44 m/uL (3.80-5.40); RDW 12.5 % (11.5-15.5); WBC 16.6 k/uL (3.8-10.6)
--- NOTE | 2020-07-14 07:28 | P.PN ---
Progress Note - Text Progress Note Date: 07/14/20 Patient doing well. Pain controlled. Denies headache or leg weakness. On-Q @ 8 ml Adductor canal catheter site clean and dry A/P POD#1 s/p R TKA - doing well - continue multimodal pain regimen
[2020-07-14] MEDS: NON FORMULARY DRUG (Lisdexamfetamine Dimesylate [Vyvanse] 30 MG Capsule) PO SCH (09:09)
[2020-07-14] MEDS: PANTOPRAZOLE 40 MG/10 ML VIAL IVP SCH (09:15)
[2020-07-14] MEDS: MELOXICAM 7.5 MG TAB PO SCH ×2 (09:24→18:39)
[2020-07-14] MEDS ORDERED: NICOTINE 7MG/24HR PATCH TRANSDERM SCH (10:00)
--- NOTE | 2020-07-14 10:18 | P.CONS ---
History of Present Illness - Reason for Consult Consult date: 07/14/20 Medical management gastroesophageal reflux disease, anxiety Requesting physician: Modesto Fong - Chief Complaint Elective right total knee arthroplasty - History of Present Illness This a 44-year-old female admitted with symptomatic right knee osteoarthritis, status post right total knee arthroplasty in a patient with past medical history of gastroesophageal reflux disease, migraines, anxiety, bipolar, depression, ongoing nicotine dependence, obesity and multiple other medical issues. Tolerated procedure well. Pain controlled currently on pain pump. Reports he ambulated with walker to bathroom, tolerating exertion well. Denies lightheadedness, dizziness or focal deficits. PT pending. Denies chest pain, palpitations or shortness of breath. Denies abdominal pain, no nausea vomiting or diarrhea.Passing flatus. Denies urinary dysuria, frequency. Mild elevated WBC, suspect reactive.VSS, afebrile. Review of Systems Constitutional: Denied any fatigue denied any fever. Cardio vascular: denied any chest pain, palpitations Gastrointestinal denied any nausea vomiting Pulmonary: Denied any shortness of breath cough Neurologic denied any new focal deficits ROS Statement: Those systems with pertinent positive or pertinent negative responses have been documented in the HPI. ROS Other: All systems not noted in ROS Statement are negative. Past Medical History Past Medical History: GERD/Reflux, Pneumonia Additional Past Medical History / Comment(s): migraines History of Any Multi-Drug Resistant Organisms: None Reported Past Surgical History: Orthopedic Surgery Additional Past Surgical History / Comment(s): L breast biopsy (2017) benign Past Anesthesia/Blood Transfusion Reactions: No Reported Reaction Past Psychological History: Anxiety, Bipolar, Depression Smoking Status: Current every day smoker Past Alcohol Use History: Occasional Additional Past Alcohol Use History / Comment(s): down to 1/2ppd, smoked since age of 13 Past Drug Use History: None Reported - Past Family History Mother Family Medical History: Cancer, Hypertension Additional Family Medical History / Comment(s): Breast cancer dx 2018 Father History Unknown: Yes Medications and Allergies Home Medications Medication Instructions Recorded Confirmed Type ALPRAZolam [Xanax] 0.5 mg PO BID PRN 02/05/19 07/13/20 History Lisdexamfetamine Dimesylate 40 mg PO QAM 02/05/19 07/13/20 History [Vyvanse] Rizatriptan Benzoate [Maxalt] 10 mg PO DIRECTED PRN 02/05/19 07/13/20 History Aspirin/Acetaminophen/Caffeine 1 each PO Q6H PRN 07/06/20 07/13/20 History [Excedrin Migraine Caplet] Cyclobenzaprine [Flexeril] 10 mg PO TID PRN 07/06/20 07/13/20 History Ibuprofen [Motrin] 800 mg PO Q6HR PRN 07/06/20 07/13/20 History Allergies Allergy/AdvReac Type Severity Reaction Status Date / Time egg Allergy Unknown Verified 07/13/20 12:09 meloxicam [From Mobic] Allergy Itching Verified 07/13/20 12:26 nitrofurantoin Allergy Rash/Hives Verified 07/13/20 12:09 tetracycline [Tetracycline] Allergy Rash/Hives Verified 07/13/20 12:09 Physical Exam Vitals: Vital Signs Temp Pulse Pulse Pulse Resp BP Pulse Ox 07/14/20 05:00 99.5 F 81 16 105/66 93 L 07/14/20 02:14 98.3 F 75 16 128/65 96 07/14/20 00:14 98.6 F 81 16 126/68 98 07/13/20 22:14 98.7 F 76 14 117/64 97 07/13/20 20:14 98.8 F 87 18 105/66 07/13/20 19:14 98.1 F 16 124/74 96 07/13/20 19:00 71 18 117/60 97 07/13/20 18:31 58 L 16 119/59 100 07/13/20 18:15 59 L 18 124/59 100 07/13/20 18:00 65 18 112/58 100 07/13/20 17:40 98.3 F 65 12 87/43 95 07/13/20 13:48 81 16 113/63 99 07/13/20 12:01 98.4 F 71 16 109/55 100 Intake and Output 07/13/20 07/14/20 07/14/20 22:59 06:59 14:59 Intake Total 1201 500 Output Total 50 Balance 1151 500 Intake: IV 1201 Oral 500 Output: Estimated Blood Loss 50 Other: # Voids 2 Weight 91.7 kg - Exam GENERAL: Sitting up in bed, alert and oriented x3, no acute distress. Well developed, well nourished. HEENT: Pupils are round and equally reacting to light. EOMI. No scleral icterus. No conjunctival pallor. Normocephalic, atraumatic. No pharyngeal erythema. No thyromegaly. CARDIOVASCULAR: S1 and S2 present. No murmurs, rubs, or gallops. PULMONARY: Chest is clear to auscultation, no wheezing or crackles. ABDOMEN: Soft, nontender, nondistended, normoactive bowel sounds. No palpable organomegaly. EXTREMITIES: Right lower extremity Angel wrapped, ice pack present, positive DP pulse, strength and sensation grossly intact, denies calf pain NEUROLOGICAL: Gross neurological examination did not reveal any focal deficits. SKIN: Warm and dry, No rashes Results CBC & Chem 7: 07/14/20 05:28 Labs: Abnormal Lab Results - Last 24 Hours (Table) 07/14/20 Range/Units 05:28 WBC 16.6 H (3.8-10.6) k/uL Neutrophils # 14.8 H (1.3-7.7) k/uL Assessment and Plan Assessment: OA right knee, symptomatic ,status post right total knee arthroplasty Leukocytosis, mild suspect reactive, UA ordered Gastroesophageal reflux disease History of anxiety, depression, bipolar disease Ongoing nicotine dependence History of migraines Plan: Continue on current medication regime ,monitoring and symptomatic treatment. Aggressive pulmonary toileting with incentive spirometer reinforced. PPI ordered for GI prophylaxis. Mild leukocytosis, UA ordered. PT. Pain management/anticoagulation as per primary. Discharge planning in progress for today as per orthopedic surgery. Follow-up with PCP in [address] Fong for the consult. The impression and plan of care has been dictated as directed. : I performed a history and examination of this patient, discussed the same with the dictator. I agree with the dictator's note ,documented as a scribe. Any additional findings or plans will be noted.
--- NOTE | 2020-07-14 10:34 | P.PN ---
Subjective Progress Note Date: 07/14/20 Principal diagnosis: Right knee osteoarthritis Upon entering room patient was lying in bed supine. Patient says she was up with physical therapy this morning, was walking in the [place] and she began to feel woozy. She was not able to do stairs this morning. Physical therapy will come back sometime this afternoon and have patient get up up out of bed and walk time. She has a pain ball. She has been receiving oral pain medication as well. She states she has pain behind the knee and above the knee. She says she was able to get up and go the bathroom last night a couple times on her own. She says she has used incentive spirometer as well. She says she is staying at her friend's house when she goes home. She denies any chest pain, shortness of breath, fever, vision changes Objective - Vital Signs Vital signs: Vital Signs Temp 99.5 F 07/14/20 05:00 Pulse 81 07/14/20 05:00 Resp 16 07/14/20 05:00 BP 105/66 07/14/20 05:00 Pulse Ox 93 L 07/14/20 05:00 Intake & Output 07/13/20 07/14/20 07/14/20 18:59 06:59 18:59 Intake Total 1201 1350 Output Total 50 Balance 1151 1350 Weight 91.7 kg 91.7 kg Intake: IV 1201 850 Oral 500 Output: Estimated Blood Loss 50 Other: # Voids 2 - Exam : Incision is clean, dry, and intact. The exofin fusion tape is in good condition. There is minimal soft tissue swelling and ecchymosis surrounding the medial and lateral aspects of the incision. Calf is soft, minimal tenderness with palpation. Plantar flexion, dorsiflexion, EHL, FHL are intact. Sensory exam to light touch throughout the extremity is intact, dorsal pedis pulses 2+. - Labs CBC & Chem 7: 07/14/20 05:28 Labs: Abnormal Lab Results - Last 24 Hours (Table) 07/14/20 Range/Units 05:28 WBC 16.6 H (3.8-10.6) k/uL Neutrophils # 14.8 H (1.3-7.7) k/uL Assessment and Plan Assessment: Right knee osteoarthritis Plan: Postoperative day 1 status post right total knee arthroplasty Plan: 1. Continue with medical management. 2. Continue with current pain medication both IV and oral medication. Patient will be discharged on [place] 7.5 mg/325 mg. take stool softener as needed. 3. Continue with physical therapy, including gait/stair training. 4. DVT prophylaxis - once at home - aspirin 81 mg twice a day for 30 days 5. Discharge planning. 6. Anticipated discharge today, 07/14/2020. Time with Patient: Less than 30
--- NOTE | 2020-07-14 10:40 | P.DS ---
Providers Date of admission: 07/13/2020 Expected date of discharge: 07/14/20 Attending physician: Modesto Fong Consults: 07/13/20 17:13 Consult Physician Routine Consulting Provider: Jeremias Frey Reason/Comments: Medical management Do you want consulting provider notified?: Yes Primary care physician: Jeremias Frey Hospital Course: Date of admission: 07/13/2020 Date of discharge: 07/14/2020 Admission diagnosis: Right knee osteoarthritis Discharge diagnosis: Same Attending physician: Dr. Fong Surgical procedures: Right total knee arthroplasty Brief history: Patient is a 44-year-old female with a history of with progressive primary right knee osteoarthritis. At this point patient has failed conservative treatment measures and has opted to proceed with a elective right total knee arthroplasty. Hospital course: Details of patient's surgery can be found in operative report. Patient tolerated the procedure well and was subsequently transported to orthopedic floor. Patient's orthopedic and medical care was provided daily. Patient had daily laboratory tests performed for evaluation of overall blood counts. Patient had daily physical therapy to include strengthening range of motion as well as education with walker ambulation. Patient was treated with Lovenox for their postoperative DVT prophylaxis during their inpatient stay. Patient was noted to have a relatively uneventful postoperative course. Patient reported satisfactory pain control with oral pain medications by postoperative day 1. Patient showed satisfactory progress with physical therapy. Patient moved steadily through the program and had no difficulty meeting the goals by postoperative day 1. Given patient's otherwise satisfactory course and having met physical therapy goals, plan is to discharge patient home on postoperative day 1. Discharge condition/disposition: Patient will be discharged home in stable condition. Discharge medications: Instructions are given on resumption of patient's normal daily medications per primary care recommendation, in addition patient will be prescribed Barton 7.5 mg/325 mg, Aspirn 81 mg BID, Colace 100 mg. Discharge instructions: 1. Wound care and infection precautions, keep incision dry and covered while showering, no lotions, creams, moisturizers. No soaking, tubs, pools, hottubs. Do not scrub over the incision. 2. Weight-bear [as tolerated] with walker / cane until follow-up. 3. Ice and elevate when necessary. Do not exceed 20 minutes per hour with ice pack. 4. Utilize compression sleeve until seen at first follow up appointment. 5. Visiting nursing care. 6. Home physical therapy including home CPM. 7. Pain meds and anticoagulants per prescription. 8. Pain medication has potential to cause constipation. Increase oral fluid and fiber intake. Contact primary care provider if you have not had a bowel movement within 48 hours after discharge 9. No anti-inflammatory medication until discussed at first post operative visit, this including Motrin, Aleve, Mobic, Diclofenac. 10. Follow up in office at 2 weeks postop with Que Carty PA-C / Pietro Russo PA-C 11. Follow up with your primary care doctor 7-10 days after discharge. 12. Contact [facility] with any questions, . Assessment: Right knee osteoarthritis Procedures: Right total knee arthroplasty Patient Condition at Discharge: Good Plan - Discharge Summary Discharge Rx Participant: Yes New Discharge Prescriptions: New Docusate [Colace] 100 mg PO DAILY #30 capsule HYDROcodone/APAP 7.5-325MG [Barton 7.5] 1 each PO Q6HR PRN #36 tab PRN Reason: Pain Aspirin [Adult Low Dose Aspirin EC] 81 mg PO BID #60 tablet.dr Discontinued Ibuprofen [Motrin] 800 mg PO Q6HR PRN PRN Reason: Pain No Action Lisdexamfetamine Dimesylate [Vyvanse] 40 mg PO QAM ALPRAZolam [Xanax] 0.5 mg PO BID PRN PRN Reason: Anxiety Rizatriptan Benzoate [Maxalt] 10 mg PO DIRECTED PRN PRN Reason: Migraine Headache Aspirin/Acetaminophen/Caffeine [Excedrin Migraine Caplet] 1 each PO Q6H PRN PRN Reason: Migraine Headache Cyclobenzaprine [Flexeril] 10 mg PO TID PRN PRN Reason: Muscle Spasm Discharge Medication List ALPRAZolam [Xanax] 0.5 mg PO BID PRN 02/05/19 [History] Lisdexamfetamine Dimesylate [Vyvanse] 40 mg PO QAM 02/05/19 [History] Rizatriptan Benzoate [Maxalt] 10 mg PO DIRECTED PRN 02/05/19 [History] Aspirin/Acetaminophen/Caffeine [Excedrin Migraine Caplet] 1 each PO Q6H PRN 07/06/20 [History] Cyclobenzaprine [Flexeril] 10 mg PO TID PRN 07/06/20 [History] Aspirin [Adult Low Dose Aspirin EC] 81 mg PO BID #60 tablet. 07/14/20 [Rx] Docusate [Colace] 100 mg PO DAILY #30 capsule 07/14/20 [Rx] HYDROcodone/APAP 7.5-325MG [Barton 7.5] 1 each PO Q6HR PRN #36 tab 07/14/20 [Rx] Follow up Appointment(s)/Referral(s): [facility],Equipment [NON-STAFF] - (*Please call [facility] once home to arrange delivery of the Continuous Passive Motion (CPM) machine. ) Uziel Carty PAC [PHYSICIAN [employer]] - 2 Weeks [facility] Visiting Nurse, [NON-STAFF] - ([facility] will call you to arrange your first visit. Your first visit will be tomorrow. ) Patient Instructions/Handouts: Knee Replacement (GEN) Activity/Diet/Wound Care/Special Instructions: Orthopedic Discharge Instructions: 1. Wound care and infection precautions, keep incision dry and covered while showering, no lotions, creams, moisturizers. No soaking, pools, hot tubs. Do not scrub over incision. 2. Weight-bear as tolerated with walker / cane until follow-up. 3. Ice and elevate when necessary. Do not exceed 20 minutes per hour with ice pack. 4. Utilize compression sleeve until seen at first follow up appointment. 5. Pain meds and anticoagulants per prescription. 6. Pain medication has potential to cause constipation. Increase oral fluid and fiber intake. Contact primary care provider if you have not had a bowel movement within 48 hours after discharge. 7. No anti-inflammatory medication until discussed at first post operative visit, this including Motrin, Aleve, Mobic, Diclofenac. 8. Follow up in office at 2 weeks postop with Que Carty PA-C / Pietro Russo PA-C 9. Follow up with your primary care doctor 7-10 days after discharge. 10. Contact [facility] with any questions, . After 7-10 days, silver foam dressing may be removed. For first 7-10 days while showering cover dressing with Saran wrap. Discharge Disposition: HOME WITH HOME HEALTH SERVICES
[2020-07-14] MEDS: hydrOXYzine pamoate 25 MG CAP PO PRN ×2 (13:13→18:24)
[2020-07-14] MEDS: NICOTINE 14MG/24HR PATCH TRANSDERM SCH (13:25)
[2020-07-14] MEDS ORDERED: ACETAMINOPHEN TAB 325 MG TAB PO PRN (13:26)
--- NOTE | 2020-07-14 18:49 | US ---
EXAMINATION TYPE: US venous doppler duplex LE RT DATE OF EXAM: 07/14/2020 4:25 PM COMPARISON: NONE CLINICAL HISTORY: calf pain, status post tka. Severe calf pain since right total knee yesterday. SIDE PERFORMED: Right TECHNIQUE: The lower extremity deep venous system is examined utilizing real time linear array sonog rosaline with graded compression, doppler sonography and color-flow sonography. VESSELS IMAGED: Common Femoral Vein Deep Femoral Vein Greater Saphenous Vein * Femoral Vein Popliteal Vein Right Leg: Within right popiteal fossa there is a bilobed versus immediately adjacent complex fluid collection with internal debris. The largest fluid pocket is measured 3.8 x 1.1 cm and 3.7 x 1.6 cm.. Popiteal artery was seen with certainty but no patent popliteal vein was detected. Proximal to the popliteal fossa, the veins of the right thigh are patent with color and spectral Doppler flow, and de monstrate compressibility. IMPRESSION: 1. Right popliteal fossa large bilobed versus immediately adjacent complex fluid collections. Findin gs may represent hematoma/seroma. 2. At this level the popliteal artery is visualized, however there is no visualization of the poplit eal vein. Correlation with surgical history is recommended. 3. Proximal to the popliteal fossa, the veins of the right thigh are patent with no venous thrombosi s.
[2020-07-15] MEDS: HYDROmorphone 0.5 MG/0.5 ML SYRINGE IVP PRN ×5 (00:06→14:30)
[2020-07-15] MEDS: LACTATED RINGERS 1,000 ML IV SCH ×3 (01:09→08:41)
[2020-07-15] MEDS: HYDROcodone/APAP 7.5-325MG 1 EACH TAB PO PRN (02:20)
[2020-07-15] MEDS: ENOXAPARIN 30 MG/0.3 ML SYRINGE SQ SCH (08:34)
[2020-07-15] MEDS: PANTOPRAZOLE 40 MG/10 ML VIAL IVP SCH (08:34)
[2020-07-15] MEDS: NON FORMULARY DRUG (Lisdexamfetamine Dimesylate [Vyvanse] 30 MG Capsule) PO SCH (08:35)
[2020-07-15] MEDS: NICOTINE 14MG/24HR PATCH TRANSDERM SCH (08:35)
[2020-07-15] MEDS: oxyCODONE-APAP 5-325MG 1 EACH TAB PO PRN ×3 (09:18→17:28)
[2020-07-15] MEDS: hydrOXYzine pamoate 25 MG CAP PO PRN ×2 (09:58→14:01)
--- NOTE | 2020-07-15 12:11 | P.PN ---
Subjective Progress Note Date: 07/15/20 Principal diagnosis: Status post right total knee arthroplasty Patient was examined today at bedside, she is resting comfortably at this time. She states that the pain is a little bit better today. We have altered the oral medication at this time. She has ambulated with physical therapy and is doing okay at this time. A Doppler was done of the lower extremity yesterday due to calf pain. It was negative for DVT. She currently denies any headaches, lightheadedness, chest pain or shortness of breath. Objective - Vital Signs Vital signs: Vital Signs Temp 99.3 F 07/15/20 05:00 Pulse 85 07/15/20 08:00 Resp 16 07/15/20 08:00 BP 132/77 07/15/20 05:00 Pulse Ox 94 L 07/15/20 05:00 Intake & Output 07/14/20 07/15/20 07/15/20 18:59 06:59 18:59 Intake Total 50 590 Balance 50 590 Intake: Intake, IV Titration 50 Amount ceFAZolin 2 gm In Sodium 50 Chloride 0.9% 50 ml @ 100 mls/hr IVPB Q8HR [facility] Rx# :[id number] Oral 590 Other: Voiding Method Toilet Toilet # Voids 4 3 - Exam Right lower extremity: Incision is clean, dry, and intact. The foam dressing is in good condition. There is minimal soft tissue swelling and ecchymosis surrounding the medial and lateral aspects of the incision. Calf is soft, no tenderness with palpation. Plantar flexion, dorsiflexion, EHL, FHL are intact. Sensory exam to light touch throughout the extremity is intact, dorsal pedis pulses 2+. - Labs CBC & Chem 7: 07/14/20 05:28 Assessment and Plan Assessment: Post op day #2 s/p right tka Plan: Pain control, Percocet 5mg/325mg 1 tab q 4 hours DVT prophylaxis, Eliquis 2.5mg bid for 2 weeks Wound care instructions discussed Icing and elevating techniques discussed Home PT and nursing after discharge Medical recommendations Plan for discharge home today Time with Patient: Less than 30
[2020-07-15] MEDS ORDERED: ASPIRIN-ACET-CAFF 250-250-65MG 1 EACH TAB PO PRN (12:25)
[2020-07-15] MEDS ORDERED: SUMAtriptan succinate 50 MG TAB PO PRN (12:25)
[2020-07-15] MEDS ORDERED: CYCLOBENZAPRINE 10 MG TAB PO PRN (12:25)
[2020-07-15] MEDS ORDERED: ALPRAZolam 0.5 MG TAB PO PRN (12:25)
[2020-07-15 13:39] VITALS: BP 133/73; PULSE 103; RESP 17; TEMP 97.6
--- NOTE | 2020-07-15 14:15 | PN ---
PROGRESS NOTE DATE OF SERVICE: 07/15/2020 I am covering for Dr. Frey. This 44-year-old woman was admitted after right total knee arthroplasty is improving significantly. The patient is complaining of significant pain and some swelling also. No chest pain. No palpitations. No fever. PHYSICAL EXAMINATION: Alert and oriented x3. Pulse 85, blood pressure 132/77, respirations 16, temperature 99.3, pulse ox 94% on room air. HEENT: Conjunctivae normal. NECK: No jugular venous distention. CARDIOVASCULAR: S1, S2 muffled. RESPIRATORY: Breath sounds diminished at the bases. No rhonchi, no crackles. ABDOMEN: Soft, nontender. LEGS: Right leg swelling. NERVOUS SYSTEM: No focal deficits. LABS: WBC 16.6. ASSESSMENT: 1. Status post right total knee arthroplasty. 2. Right knee pain and swelling. 3. Gastroesophageal reflux disease. 4. History of pneumonia. 5. History of migraines. 6. History of degenerative joint disease. 7. Left breast biopsy. 8. Anxiety, bipolar, depression. 9. History of nicotine dependence. RECOMMENDATIONS AND DISCUSSION: This 44-year-old woman who presented with multiple medical issues. Recommend to continue the current medications, continue symptomatic treatment. Continue with DVT prophylaxis. Continue with symptomatic treatment, pain management. Resume the home medications. We will follow the patient closely with you and recommend close follow up with Dr. Frey after discharge in the outpatient setting. MMLUCILLEL / JOYN: [id number] /
[2020-07-16] MEDS ORDERED: PANTOPRAZOLE 40 MG TABLET PO SCH (07:30)
== END 2020-07-15 18:30 | disposition home health service (06) ==
LOC: OR 10:36 → 5NMEDONC 17:30 → OR 07-15 10:36 → 5NMEDONC 07-15 10:36
PROVIDERS: ADMIT Orthopaedic Surgery; ATTEND Orthopaedic Surgery
DX: M17.11 Unilateral primary osteoarthritis, right knee (principal); K21.9 Gastro-esophageal reflux disease without esophagitis; D72.829 Elevated white blood cell count, unspecified; G89.18 Other acute postprocedural pain; M25.561 Pain in right knee; G43.909 Migraine, unspecified, not intractable, without status migrainosus; F31.9 Bipolar disorder, unspecified; F41.9 Anxiety disorder, unspecified; E66.9 Obesity, unspecified; Z68.35 Body mass index [BMI] 35.0-35.9, adult; F17.210 Nicotine dependence, cigarettes, uncomplicated; Z79.899 Other long term (current) drug therapy; Z88.1 Allergy status to other antibiotic agents; Z88.6 Allergy status to analgesic agent; Z91.012 Allergy to eggs; Z98.891 History of uterine scar from previous surgery; Z90.49 Acquired absence of other specified parts of digestive tract; Z87.01 Personal history of pneumonia (recurrent); Z82.49 Family history of ischemic heart disease and other diseases of the circulatory system; Z80.3 Family history of malignant neoplasm of breast
CPT/HCPCS: 27447; 97530 ×2; 97161; 97166; 81025; 64999; 64448; 76942; 85025; 88300; 87635; 73560; 93971; G0378 ×2; C1776; C1713; J2250; J1100; J0690 ×3; J2405; J3010; J1650 ×2; J1170 ×4; J2795 ×2; J1885; J2370; J2704; C9113 ×2; J1790

== ENCOUNTER → 2021-01-13 | Outpatient (CLI) | payer OTHER ==
--- NOTE | 2021-01-14 09:57 | MM ---
Reason for exam: screening (asymptomatic). Last mammogram was performed 1 year and 5 months ago. History: Patient is postmenopausal. Family history of breast cancer in 2 paternal cousins, breast cancer in mother at age 63, and breast cancer in maternal aunt at age 40. Benign US biopsy breast VAD LT of the left breast, December 08, 2015. Took hormonal contraceptives for 5 years. Physical Findings: A clinical breast exam by your physician is recommended on an annual basis and results should be correlated with mammographic findings. MG 3D Screening Mammo W/Cad Bilateral CC and MLO view(s) were taken. Prior study comparison: August 29, 2019, bilateral MG 3d screening mammo w/cad. December 22, 2017, bilateral MG 3d screening mammo w/cad. The breast tissue is extremely dense which could obscure a lesion on mammography. There is no discrete abnormality. No significant changes when compared with prior studies. ASSESSMENT: Negative, BI-RAD 1 RECOMMENDATION: Routine screening mammogram of both breasts in 1 year.
== END | disposition home or self-care (01) ==
LOC: RADMAMWWP 10:03
PROVIDERS: ATTEND Family Medicine
DX: Z12.31 Encounter for screening mammogram for malignant neoplasm of breast (principal)
CPT/HCPCS: 77063; 77067

== ENCOUNTER 2021-06-03 17:24 | Emergency (ER) | payer OTHER ==
[2021-06-03 17:37] VITALS: TEMP 97.6
[2021-06-03] MEDS ORDERED: ONDANSETRON 4 MG/2 ML VIAL IVP STA (18:24)
[2021-06-03] MEDS ORDERED: KETOROLAC 15 MG/ML 1 ML VIAL IVP STA (18:24)
[2021-06-03] MEDS ORDERED: SODIUM CHLORIDE 0.9% 1,000 ML IV STA (18:24)
[2021-06-03 18:50] LABS: Basophils % (A) 1 %; Eosinophils # (A) 0.1 k/uL (0-0.7); Eosinophils % (A) 1 %; HCT 41.9 % (34.0-46.0); HGB 14.1 gm/dL (11.4-16.0); Lymphocytes # (A) 1.5 k/uL (1.0-4.8); Lymphocytes % (A) 25 %; MCH 29.5 pg (25.0-35.0); MCHC 33.6 g/dL (31.0-37.0); MCV 87.9 fL (80.0-100.0); Mean Platelet Volume 7.9; Monocytes # (A) 0.3 k/uL (0-1.0); Monocytes % (A) 6 %; Neutrophils % (A) 65 %; Platelet Count 259 k/uL (150-450); RBC 4.77 m/uL (3.80-5.40); RDW 12.7 % (11.5-15.5); WBC 6.2 k/uL (3.8-10.6)
[2021-06-03 18:54] LABS: Appearance,Urine Clear (Clear); Bacteria,Urine Rare /hpf; Bilirubin,Urine Negative (Negative); Blood,Urine Trace (Negative); Color,Urine Colorless; Glucose,Urine (UA) Negative (Negative); Ketones,Urine Negative (Negative); Leukocyte Esterase,Urine Negative (Negative); Nitrite,Urine Negative (Negative); Protein,Urine Negative (Negative); RBC,Urine 1 /hpf (0-5); Specific Gravity,Urine 1.003 (1.001-1.035); Squamous Epithelial Cell,Urine 1 /hpf (0-4); Urobilinogen,Urine <2.0 mg/dL (<2.0)
[2021-06-03 18:59] LABS: ALT 13 U/L (4-34); AST 16 U/L (14-36); African American GFR (CKD) >90 (>60 ml/min/1.73 sqM); Albumin 4.1 g/dL (3.5-5.0); Alkaline Phosphatase 71 U/L (38-126); Anion Gap 7 mmol/L; Blood Urea Nitrogen 8 mg/dL (7-17); Carbon Dioxide 25 mmol/L (22-30); Chloride 107 mmol/L (98-107); Glucose 94 mg/dL (74-99); Lipase 95 U/L (23-300); Non-African American GFR(CKD) >90 (>60 ml/min/1.73 sqM); Potassium 3.8 mmol/L (3.5-5.1); Sodium 139 mmol/L (137-145); Total Bilirubin 0.6 mg/dL (0.2-1.3)
--- NOTE | 2021-06-03 19:15 | CT ---
EXAMINATION TYPE: CT abdomen pelvis wo con DATE OF EXAM: 06/03/2021 COMPARISON: None available HISTORY: Abdominal/back pain, possible renal stone CT DLP: 893.7 mGycm Automated exposure control for dose reduction was used. TECHNIQUE: Helical acquisition of images was performed from the lung bases through the pelvis. FINDINGS: LUNG BASES: No significant abnormality is appreciated. LIVER/GB: No significant abnormality is appreciated. PANCREAS: No significant abnormality is seen. SPLEEN: No significant abnormality is seen. ADRENALS: No significant abnormality is seen. KIDNEYS: No significant abnormality is seen. No hydronephrosis or nephrolithiasis. FREE AIR: No free air is visualized RETROPERITONEAL ADENOPATHY: None visualized REPRODUCTIVE ORGANS: No significant abnormality is seen URINARY BLADDER: No significant abnormality is seen. PELVIC ADENOPATHY: None visualized. OSSEOUS STRUCTURES: No significant abnormality is seen. BOWEL: No significant abnormality is seen. Appendectomy. OTHER: None IMPRESSION: NO ACUTE ABNORMALITY.
[2021-06-03 19:44] VITALS: BP 140/94; PULSE 86; RESP 16
[2021-06-03] MEDS ORDERED: CEPHALEXIN 500 MG CAP PO STA (20:09)
--- NOTE | 2021-06-03 20:12 | ED ---
General Adult HPI - General Chief complaint: Back Pain/Injury Stated complaint: Kidney stone Time Seen by Provider: 06/03/21 17:35 Source: patient Mode of arrival: ambulatory Limitations: no limitations - History of Present Illness Initial comments: 45 year old female presents emergency Department with right flank and right lower quadrant abdominal pain. States that the pain has been present for the past week. She has associated hematuria. Pain was worse earlier this week however is still persistent for patient with concern for possible kidney stone. States she has had a history of one previously in the past. Denies any fevers. No increased frequency voiding. No changes in her bowel habits to include diarrhea, constipation, melena or hematochezia. Patient has an ablation and therefore has no menstrual cycles. No concern for . Patient is status post appendectomy. No concern for sexually transmitted infections. No other al leviating, precipitating or modifying factors - Related Data Home Medications Medication Instructions Recorded Confirmed ALPRAZolam [Xanax] 0.5 mg PO DAILY PRN 02/05/19 06/03/21 Ibuprofen [Motrin] 800 mg PO Q8H PRN 06/03/21 06/03/21 Lisdexamfetamine Dimesylate 40 mg PO DAILY 06/03/21 06/03/21 [Vyvanse] Previous Rx's Medication Instructions Recorded Cephalexin [Keflex] 500 mg PO Q6HR #28 cap 06/03/21 Allergies Allergy/AdvReac Type Severity Reaction Status Date / Time egg Allergy Unknown Verified 06/03/21 18:34 meloxicam [From Mobic] Allergy Itching Verified 06/03/21 18:34 nitrofurantoin Allergy Rash/Hives Verified 06/03/21 18:34 tetracycline [Tetracycline] Allergy Rash/Hives Verified 06/03/21 18:34 Review of Systems ROS Statement: Those systems with pertinent positive or pertinent negative responses have been documented in the HPI. ROS Other: All systems not noted in ROS Statement are negative. Past Medical History Past Medical History: GERD/Reflux, Pneumonia Additional Past Medical History / Comment(s): migraines History of Any Multi-Drug Resistant Organisms: None Reported Past Surgical History: Orthopedic Surgery Additional Past Surgical History / Comment(s): L breast biopsy (2017) benign Past Anesthesia/Blood Transfusion Reactions: No Reported Reaction Past Psychological History: Anxiety, Bipolar, Depression Smoking Status: Current every day smoker Past Alcohol Use History: Occasional Past Drug Use History: None Reported - Past Family History Mother Family Medical History: Cancer, Hypertension Additional Family Medical History / Comment(s): Breast cancer dx 2018 Father History Unknown: Yes General Exam Limitations: no limitations General appearance: alert, in no apparent distress Head exam: Present: atraumatic, normocephalic, normal inspection Eye exam: Present: normal appearance, PERRL, EOMI. Absent: scleral icterus, conjunctival injection, periorbital swelling ENT exam: Present: normal exam, mucous membranes moist Neck exam: Present: normal inspection. Absent: tenderness, meningismus, lymphadenopathy Respiratory exam: Present: normal lung sounds bilaterally. Absent: respiratory distress, wheezes, rales, rhonchi, stridor Cardiovascular Exam: Present: regular rate, normal rhythm, normal heart sounds. Absent: systolic murmur, diastolic murmur, rubs, gallop, clicks GI/Abdominal exam: Present: soft, tenderness (rlq), normal bowel sounds. Absen t: distended, guarding, rebound, rigid Extremities exam: Present: normal inspection, full ROM, normal capillary refill. Absent: tenderness, pedal edema, joint swelling, calf tenderness Back exam: Present: normal inspection, CVA tenderness (R) Neurological exam: Present: alert, oriented X3, CN II-XII intact Psychiatric exam: Present: normal affect, normal mood Skin exam: Present: warm, dry, intact, normal color. Absent: rash Course Vital Signs 06/03/21 06/03/21 17:34 19:36 Temperature 97.6 F Pulse Rate 105 H 86 Respiratory 20 16 Rate Blood Pressure 119/75 140/94 O2 Sat by Pulse 100 100 Oximetry Medical Decision Making - Medical Decision Making Upon arrival patient is placed in room 17. A thorough history and physical exam was performed. Patient given a dose of Toradol for pain control and Zofran for nausea. Laboratory studies were conducted. Patient states a urine sample. CT is performed. Laboratory studies are reviewed. Urinalysis does demonstrate trace blood and or bacteria. CT fails to demonstrate any acute findings. results are discussed with the patient. Will prophylactically treat for possible pyelonephritis. Take antibiotics as directed and follow up with her primary care doctor. Return for any worsening symptoms. Patient agreed to plan and was discharged home in stable condition - Lab Data Result diagrams: 06/03/21 18:47 06/03/21 18:47 Lab Results 06/03/21 06/03/21 06/03/21 Range/Units 18:47 18:47 18:47 WBC 6.2 (3.8-10.6) k/uL RBC 4.77 (3.80-5.40) m/uL Hgb 14.1 (11.4-16.0) gm/dL Hct 41.9 (34.0-46.0) % MCV 87.9 (80.0-100.0) fL MCH 29.5 (25.0-35.0) pg MCHC 33.6 (31.0-37.0) g/dL RDW 12.7 (11.5-15.5) % Plt Count 259 (150-450) k/uL MPV 7.9 Neutrophils % 65 % Lymphocytes % 25 % Monocytes % 6 % Eosinophils % 1 % Basophils % 1 % Neutrophils # 4.0 (1.3-7.7) k/uL Lymphocytes # 1.5 (1.0-4.8) k/uL Monocytes # 0.3 (0-1.0) k/uL Eosinophils # 0.1 (0-0.7) k/uL Basophils # 0.0 (0-0.2) k/uL Sodium 139 (137-145) mmol/L Potassium 3.8 (3.5-5.1) mmol/L Chloride 107 (98-107) mmol/L Carbon Dioxide 25 (22-30) mmol/L Anion Gap 7 mmol/L BUN 8 (7-17) mg/dL Creatinine 0.67 (0.52-1.04) mg/dL Est GFR (CKD-EPI)AfAm >90 (>60 ml/min/1.73 sqM) Est GFR (CKD-EPI)NonAf >90 (>60 ml/min/1.73 sqM) Glucose 94 (74-99) mg/dL Calcium 9.0 (8.4-10.2) mg/dL Total Bilirubin 0.6 (0.2-1.3) mg/dL AST 16 (14-36) U/L ALT 13 (4-34) U/L Alkaline Phosphatase 71 (38-126) U/L Total Protein 7.0 (6.3-8.2) g/dL Albumin 4.1 (3.5-5.0) g/dL Lipase 95 (23-300) U/L Urine Color Colorless Urine Appearance Clear (Clear) Urine pH 6.0 (5.0-8.0) Ur Specific [place] 1.003 (1.001-1.035) Urine Protein Negative (Negative) Urine Glucose (UA) Negative (Negative) Urine Ketones Negative (Negative) Urine Blood Trace H (Negative) Urine Nitrite Negative (Negative) Urine Bilirubin Negative (Negative) Urine Urobilinogen <2.0 (<2.0) mg/dL Ur Leukocyte Esterase Negative (Negative) Urine RBC 1 (0-5) /hpf Ur Squamous Epith Cells 1 (0-4) /hpf Urine Bacteria Rare H (None) /hpf Disposition Clinical Impression: Right flank pain, Hematuria Disposition: HOME SELF-CARE Condition: Stable Instructions (If sedation given, give patient instructions): Hematuria (ED) Additional Instructions: Please take the antibiotics as directed. Please follow-up with your primary car e doctor in 2-4 days. They need to repeat a urine specimen to ensure that the blood has cleared. Return for any new or worsening symptoms Prescriptions: Cephalexin [Keflex] 500 mg PO Q6HR #28 cap Is patient prescribed a controlled substance at d/c from ED?: No Referrals: Jeremias Frey DO [Primary Care Provider] - 1-2 days Time of Disposition: 20:12
== END 2021-06-03 20:43 | disposition home or self-care (01) ==
LOC: EC 17:24
DX: R10.31 Right lower quadrant pain (principal); R31.9 Hematuria, unspecified; K21.9 Gastro-esophageal reflux disease without esophagitis; F31.9 Bipolar disorder, unspecified; F41.9 Anxiety disorder, unspecified; F17.200 Nicotine dependence, unspecified, uncomplicated; Z79.899 Other long term (current) drug therapy
CPT/HCPCS: 36415; 80053; 83690; 85025; 81001; 74176; 99284; 96374; 96375; 96361; J2405; J1885

== ENCOUNTER → 2021-07-15 | Outpatient (CLI) | payer OTHER ==
--- NOTE | 2021-07-16 11:46 | US ---
EXAMINATION TYPE: US pelvic complete DATE OF EXAM: 07/15/2021 COMPARISON: CT, US CLINICAL HISTORY: R31.9 Hematuria. Patient stated had recent episode of hematuria per EC results; end ometrial ablation 4 years ago; C section x 1; in May had RLQ pain TECHNIQUE: TA US. Transabdominal sonographic images of the pelvis were acquired. Date of LMP: 4 years ago EXAM MEASUREMENTS: Uterus: 9.2 x 6.1 x 3.6 cm Endometrial Stripe: 0.3 cm Right Ovary: 3.4 x 2.4 x 1.3 cm Left Ovary: 3.4 x 2.7 x 1.7 cm 1. Uterus: Anteverted; Nabothian Cyst seen in cervix = 1.2 x 1.3 x 0.9cm; hypoechoic oval mass (uter ine fibroid) seen in upper myometrium = 1.3 x 1.3 x 0.9cm with associated peripheral color flow 2. Endometrium: thin, hyperechoic tissue seen in upper endometrium post ablation 4 years ago. 3. Right Ovary: small follicles seen 4. Left Ovary: simple cyst seen = 1.1 x 1.2 x 1.2cm Spectral, color and waveform doppler imaging shows good arterial and venous flow within the ovaries ; there is no evidence for ovarian torsion. 5. Bilateral Adnexa: wnl 6. Posterior cul-de-sac: wnl 7. Bladder: US done due to hematuria diagnosis; no bladder masses seen; (greater than 50.0ml). IMPRESSION: 1. Uterine fibroid. 2. Small simple left ovarian cyst.
== END | disposition home or self-care (01) ==
LOC: RADUSWWP 15:28
PROVIDERS: ATTEND Family Medicine
DX: N83.292 Other ovarian cyst, left side (principal); D25.9 Leiomyoma of uterus, unspecified
CPT/HCPCS: 76856

== ENCOUNTER 2021-09-11 13:13 | Emergency (ER) | payer OTHER ==
[2021-09-11 14:32] VITALS: TEMP 98
--- NOTE | 2021-09-11 14:48 | XR ---
EXAMINATION TYPE: XR knee complete RT DATE OF EXAM: 09/11/2021 COMPARISON: NONE HISTORY: Knee pain TECHNIQUE: 3 views FINDINGS: There is right knee prosthesis. Components appear in anatomic position. No fracture seen. N o sign of joint effusion. IMPRESSION: No fracture seen.
--- NOTE | 2021-09-11 16:23 | ED ---
Lower Extremity Injury HPI - General Chief Complaint: Extremity Injury, Lower Stated Complaint: R leg pain Time Seen by Provider: 09/11/21 16:04 Source: patient Mode of arrival: ambulatory Limitations: no limitations - History of Present Illness Initial Comments: This is a pleasant 46-year-old female with history of right knee replacement. Patient states that over the past few months she has had increasing pain to the right lower extremity which is intermittent. Patient states that the pain feels like a shooting sensation or electric shock sensation which starts at the posterior aspect of her right knee at the lateral aspect. Patient states it seems to be associated when she turns in certain ways. It does shoot proximally and distally, mainly in the back only but does radiate around to the front of the leg in front of the ankle at times. There is no constant pain. This is intermittent. No current distal paresthesias. No current pain. Patient denies any injury. Patient states that she saw her orthopedic physician a few months ago and mentioned the pain to him. However she states it seems to be getting more frequent. No headache, no fever or chills, no changes in vision or hearing, no sore throat or difficulty with speech, no neck pain, no chest pain or shortness of breath, no abdominal pain, no nausea or vomiting, no changes in urination or bowel movements, no numbness or tingling, , no skin rashes or lesions. - Related Data Home Medications Medication Instructions Recorded Confirmed ALPRAZolam [Xanax] 0.5 mg PO DAILY PRN 02/05/19 06/03/21 Ibuprofen [Motrin] 800 mg PO Q8H PRN 06/03/21 06/03/21 Lisdexamfetamine Dimesylate 40 mg PO DAILY 06/03/21 06/03/21 [Vyvanse] Previous Rx's Medication Instructions Recorded Cephalexin [Keflex] 500 mg PO Q6HR #28 cap 06/03/21 Gabapentin [Neurontin] 100 mg PO TID 3 Days #9 cap 09/11/21 Allergies Allergy/AdvReac Type Severity Reaction Status Date / Time egg Allergy Unknown Verified 09/11/21 14:32 meloxicam [From Mobic] Allergy Itching Verified 09/11/21 14:32 nitrofurantoin Allergy Rash/Hives Verified 09/11/21 14:32 tetracycline [Tetracycline] Allergy Rash/Hives Verified 09/11/21 14:32 Review of Systems ROS Statement: Those systems with pertinent positive or pertinent negative responses have been documented in the HPI. ROS Other: All systems not noted in ROS Statement are negative. Past Medical History Past Medical History: GERD/Reflux, Pneumonia Additional Past Medical History / Comment(s): migraines History of Any Multi-Drug Resistant Organisms: None Reported Past Surgical History: Orthopedic Surgery Additional Past Surgical History / Comment(s): L breast biopsy (2017) benign Past Anesthesia/Blood Transfusion Reactions: No Reported Reaction Past Psychological History: Anxiety, Bipolar, Depression Smoking Status: Current every day smoker Past Alcohol Use History: Occasional Past Drug Use History: None Reported - Past Family History Mother Family Medical History: Cancer, Hypertension Additional Family Medical History / Comment(s): Breast cancer dx 2018 Father History Unknown: Yes General Exam Limitations: no limitations General appearance: alert, in no apparent distress Head exam: Present: atraumatic, normocephalic, normal inspection Eye exam: Present: normal appearance, PERRL, EOMI. Absent: scleral icterus, conjunctival injection, periorbital swelling ENT exam: Present: normal exam, mucous membranes moist Neck exam: Present: normal inspection. Absent: tenderness, meningismus, lymphadenopathy Respiratory exam: Present: normal lung sounds bilaterally. Absent: respiratory distress, wheezes, rales, rhonchi, stridor Cardiovascular Exam: Present: regular rate, normal rhythm, normal heart sounds. Absent: systolic murmur, diastolic murmur, rubs, gallop, clicks GI/Abdominal exam: Present: soft, normal bowel sounds. Absent: distended, tenderness, guarding, rebound, rigid Extremities exam: Present: normal inspection, full ROM, normal capillary refill, other (No rashes or lesions. Pedal pulses are 2+ out of 4. Reflexes are intact. Great toe extensor strength is +5 out of 5.). Absent: tenderness, pedal edema, joint swelling, calf tenderness Back exam: Present: normal inspection, full ROM. Absent: tenderness, rash noted Neurological exam: Present: alert, oriented X3, CN II-XII intact, normal gait, reflexes normal. Absent: altered, abnormal gait, motor sensory deficit Psychiatric exam: Present: normal affect, normal mood Skin exam: Present: warm, dry, intact, normal color. Absent: rash Course Vital Signs 09/11/21 14:30 Temperature 98 F Pulse Rate 102 H Respiratory 20 Rate Blood Pressure 138/86 O2 Sat by Pulse 98 Oximetry Medical Decision Making - Medical Decision Making Patient likely has intermittent nerve impingement involving the right lower extremity. Possibly peroneal nerve. Patient likely needs an EMG at this point. I did discuss treatment options with the patient. We'll try low-dose gabapentin. Patient will need to follow-up with her regular physician for further dosing. We'll touch base with the patient's community engagement specialist to see if they perform EMGs at that clinic. The case was discussed in detail with ED attending physician. Presentation, findings, treatment plan discussed in detail. Patient was told to return to the ER for any signs or symptoms worsen. Told to return immediately if any other problems arise. All questions answered. Treatment plan discussed. Patient in agreement Every effort has been made to ensure accuracy of this dictation. However, due to the limitations of electronic medical records and dictation devices, errors in charting still occur. Supervising physicians Dr. Monroy - Radiology Data Radiology results: report reviewed (No acute findings noted), image reviewed Disposition Clinical Impression: Superficial peroneal nerve neuropathy Disposition: HOME SELF-CARE Condition: Good Instructions (If sedation given, give patient instructions): Paresthesia (ED) Additional Instructions: Follow-up as directed. Call at 8 AM tomorrow morning to schedule the appointment. Follow-up with your regular physician as directed. Return to the ER immediately if any symptoms worsen, new symptoms arise, or any other problems develop. Prescriptions: Gabapentin [Neurontin] 100 mg PO TID 3 Days #9 cap Is patient prescribed a controlled substance at d/c from ED?: No Referrals: Jeremias Frey DO [Primary Care Provider] - 1-2 days Dev De La Torre MD [STAFF PHYSICIAN] - As Soon As Possible Time of Disposition: 16:21
[2021-09-11 16:39] VITALS: RESP 18
[2021-09-11 17:04] VITALS: BP 144/78; PULSE 87
== END 2021-09-11 17:04 | disposition home or self-care (01) ==
LOC: EC 13:13
DX: G62.9 Polyneuropathy, unspecified (principal); K21.9 Gastro-esophageal reflux disease without esophagitis; F31.9 Bipolar disorder, unspecified; F41.9 Anxiety disorder, unspecified; F17.200 Nicotine dependence, unspecified, uncomplicated; Z79.899 Other long term (current) drug therapy
CPT/HCPCS: 99283

== ENCOUNTER 2021-09-24 12:05 | Emergency (ER) | payer OTHER ==
[2021-09-24 13:29] VITALS: BP 113/77; PULSE 98; RESP 18; TEMP 98
[2021-09-24] MEDS ORDERED: MORPHINE SULFATE 4 MG/ML SYRINGE IM STA (14:41)
--- NOTE | 2021-09-24 15:13 | US ---
EXAMINATION TYPE: US venous doppler duplex LE RT DATE OF EXAM: 09/24/2021 3:00 PM COMPARISON: NONE CLINICAL HISTORY: 46-year-old female pain. SIDE PERFORMED: Right TECHNIQUE: The lower extremity deep venous system is examined utilizing real time linear array sonog rosaline with graded compression, doppler sonography and color-flow sonography. FINDINGS: VESSELS IMAGED: Common Femoral Vein Deep Femoral Vein Greater Saphenous Vein * Femoral Vein Popliteal Vein Small Saphenous Vein * Proximal Calf Veins (* superficial vessels) Right Leg: Negative for DVT IMPRESSION: No evidence for DVT within the right lower extremity imaged from the groin to the upper calf.
--- NOTE | 2021-09-24 15:33 | ED ---
Extremity Problem HPI - General Chief complaint: Extremity Problem,Nontraumatic Stated complaint: revisit - rt leg pain Time Seen by Provider: 09/24/21 14:27 Source: patient Mode of arrival: ambulatory Limitations: no limitations - History of Present Illness Initial comments: Patient is a 46-year-old female who presents to the emergency department for ev aluation of right leg pain. Patient had a right knee replacement approximately one year ago. Patient states for the past few months she has had increased pain. Describes the pain as a bandlike pressure in the back of her mid right thigh. Patient also has shooting pain from the back of the mid right thigh into the back of the mid calf with certain unidentified leg movements. Patient denies reinjury. Patient states her mechanical service specialist cannot see her due to insurance issues. Patient states her primary care provider is out of town and until October 04. Patient recently got an EMG done but does not know the results. Patient was evaluated for the same concern on September 11 where x-ray was negative. She was discharged with gabapentin. She states the gabapentin isn't working and is making her nauseous. Patient denies personal and family history of DVT and PE. Denies tobacco use and history of cancer. 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 - Related Data Home Medications Medication Instructions Recorded Confirmed ALPRAZolam [Xanax] 0.5 mg PO DAILY PRN 02/05/19 06/03/21 Ibuprofen [Motrin] 800 mg PO Q8H PRN 06/03/21 06/03/21 Lisdexamfetamine Dimesylate 40 mg PO DAILY 06/03/21 06/03/21 [Vyvanse] Previous Rx's Medication Instructions Recorded Cephalexin [Keflex] 500 mg PO Q6HR #28 cap 06/03/21 Gabapentin [Neurontin] 100 mg PO TID 3 Days #9 cap 09/11/21 Allergies Allergy/AdvReac Type Severity Reaction Status Date / Time egg Allergy Unknown Verified 09/24/21 13:29 meloxicam [From Mobic] Allergy Itching Verified 09/24/21 13:29 nitrofurantoin Allergy Rash/Hives Verified 09/24/21 13:29 tetracycline [Tetracycline] Allergy Rash/Hives Verified 09/24/21 13:29 Review of Systems ROS Statement: Those systems with pertinent positive or pertinent negative responses have been documented in the HPI. ROS Other: All systems not noted in ROS Statement are negative. Past Medical History Past Medical History: GERD/Reflux, Pneumonia Additional Past Medical History / Comment(s): migraines History of Any Multi-Drug Resistant Organisms: None Reported Past Surgical History: Orthopedic Surgery Additional Past Surgical History / Comment(s): L breast biopsy (2017) benign Past Anesthesia/Blood Transfusion Reactions: No Reported Reaction Past Psychological History: Anxiety, Bipolar, Depression Smoking Status: Current every day smoker Past Alcohol Use History: Occasional Past Drug Use History: None Reported - Past Family History Mother Family Medical History: Cancer, Hypertension Additional Family Medical History / Comment(s): Breast cancer dx 2018 Father History Unknown: Yes General Exam Limitations: no limitations General appearance: alert, in no apparent distress Head exam: Present: atraumatic, normocephalic, normal inspection Eye exam: Present: normal appearance, PERRL, EOMI. Absent: scleral icterus, conjunctival injection, periorbital swelling Respiratory exam: Present: normal lung sounds bilaterally. Absent: respiratory distress, wheezes, rales, rhonchi, stridor Cardiovascular Exam: Present: regular rate, normal rhythm, normal heart sounds. Absent: systolic murmur, diastolic murmur, rubs, gallop, clicks Right Upper Leg exam: Present: normal inspection, full ROM, tenderness (posterior mid thigh). Absent: swelling, deformity Knee exam: Present: normal inspection, full ROM, tenderness (posteriorly ). Absent: swelling, ecchymosis, deformity, erythema, posterior draw sign, pain/laxity with valgus, pain/laxity with varus Lower Leg exam: Present: normal inspection, full ROM, tenderness (calf ), Homans' sign. Absent: erythema, palpable cord Ankle exam: Present: normal inspection, full ROM. Absent: tenderness, swelling Neurovascular tendon exam: Present: no vascular compromise. Absent: abnormal cap refill, pallor Course Vital Signs 09/24/21 13:25 Temperature 98.0 F Pulse Rate 98 Respiratory 18 Rate Blood Pressure 113/77 O2 Sat by Pulse 98 Oximetry - Reevaluation(s) Reevaluation #1: 09/24/21 15:35 Patient called from waiting room for results. Patient not in waiting room. 09/24/21 15:35 Reevaluation #2: Patient called from the waiting room again however is not in the waiting room still. 09/24/21 15:51 Medical Decision Making - Medical Decision Making This is a 46-year-old female who presents for evaluation of right lower extremity pain. Thorough history and examination were performed. The right lower extremity is normal in color, warm, neurovascularly intact. There is no swelling or erythema. There is tenderness with palpation of the posterior mid thigh, posterior knee, and calf. Full range of motion. I did obtain a venous Doppler of the right lower extremity which is negative for DVT. I went to the waiting room to call patient back into the emergency department to discuss results. Patient was called 3 times over the course of an hour with no response. I did not see her in the waiting room. Appears that patient has left before I cannot provide patient with results, discharge instructions, or send her home with pain medications. Dr. Romero is my attending. Disposition Clinical Impression: Leg pain, right, History of knee replacement procedure of right knee Disposition: Left Against Medical Advice Condition: Good Additional Instructions: Follow-up with your primary care provider regarding EMG results. Return to the emergency department experience new, concerning, or worsening symptoms. Is patient prescribed a controlled substance at d/c from ED?: No Referrals: Jeremias Frey DO [Primary Care Provider] - 1-2 days
== END 2021-09-24 16:59 | disposition left against medical advice (07) ==
LOC: EC 12:05
DX: Z96.651 Presence of right artificial knee joint (principal); K21.9 Gastro-esophageal reflux disease without esophagitis; Z79.83 Long term (current) use of bisphosphonates; F17.200 Nicotine dependence, unspecified, uncomplicated; Z88.3 Allergy status to other anti-infective agents; Z91.012 Allergy to eggs; Z88.1 Allergy status to other antibiotic agents
CPT/HCPCS: 99283

== ENCOUNTER 2021-11-09 18:49 | Emergency (ER) | payer OTHER ==
[2021-11-09 18:53] VITALS: TEMP 96.9
[2021-11-09] MEDS ORDERED: HYDROmorphone 1 MG/ML 1 ML SYRINGE IM STA (19:13)
[2021-11-09] MEDS ORDERED: KETOROLAC 15 MG/ML 1 ML VIAL IM STA (19:13)
[2021-11-09] MEDS ORDERED: ORPHENADRINE 30 MG/ML 2 ML VIAL IM STA (19:13)
[2021-11-09] MEDS ORDERED: ORPHENADRINE 30 MG/ML 2 ML VIAL IVP STA (19:21)
[2021-11-09] MEDS ORDERED: HYDROmorphone 1 MG/ML 1 ML SYRINGE IVP STA (19:21)
--- NOTE | 2021-11-09 19:31 | ED ---
Back Pain HPI - General Chief Complaint: Back Pain/Injury Stated Complaint: Back Pain Time Seen by Provider: 11/09/21 19:02 Source: patient, RN notes reviewed Limitations: no limitations - History of Present Illness Initial Comments: This patient was seen here previously for right leg pain, patient was then seen again for right leg pain and had a venous Doppler which rule out the pain. However the patient has developed back pain. Patient received initially a seen a back specialist for upper back pain. Patient states pain is located in the lower back and seems to be a burning sensation. Patient does get radiation of pain into the leg which is intermittent. Patient states that pain is exacerbated by movement and walking. Patient denying any problems with bowel movements or urination. No fever or chills. No recent instrumentation. Patient states her back pain was increased today and she found it hard to walk due to the pain. For this reason she presents here. No headache, no fever or chills, no changes in vision or hearing, no sore throat or difficulty with speech, no neck pain, no chest pain or shortness of breath, no abdominal pain, no nausea or vomiting, no changes in urination or bowel movements, no skin rashes or lesions. Patient actually saw her primary care physician this morning and was started on muscle relaxers. Patient was restarted on Neurontin. Currently taking 300 mg 3 times a day. Past medical, surgical, social, and family history reviewed. Complaint: back pain - Related Data Home Medications Medication Instructions Recorded Confirmed ALPRAZolam [Xanax] 0.5 mg PO DAILY PRN 02/05/19 06/03/21 Ibuprofen [Motrin] 800 mg PO Q8H PRN 06/03/21 06/03/21 Lisdexamfetamine Dimesylate 40 mg PO DAILY 06/03/21 06/03/21 [Vyvanse] Previous Rx's Medication Instructions Recorded Cephalexin [Keflex] 500 mg PO Q6HR #28 cap 06/03/21 Gabapentin [Neurontin] 100 mg PO TID 3 Days #9 cap 09/11/21 methylPREDNISolone Dose Pack 4 mg PO DIRECTED #21 tab 11/09/21 [Medrol Dose Pack] methylPREDNISolone Dose Pack 4 mg PO DIRECTED #21 tab 11/09/21 [Medrol Dose Pack] Allergies Allergy/AdvReac Type Severity Reaction Status Date / Time egg Allergy Unknown Verified 11/09/21 18:53 meloxicam [From Mobic] Allergy Itching Verified 11/09/21 18:53 nitrofurantoin Allergy Rash/Hives Verified 11/09/21 18:53 tetracycline [Tetracycline] Allergy Rash/Hives Verified 11/09/21 18:53 Review of Systems ROS Statement: Those systems with pertinent positive or pertinent negative responses have been documented in the HPI. ROS Other: All systems not noted in ROS Statement are negative. Past Medical History Past Medical History: GERD/Reflux, Pneumonia Additional Past Medical History / Comment(s): migraines History of Any Multi-Drug Resistant Organisms: None Reported Past Surgical History: Orthopedic Surgery Additional Past Surgical History / Comment(s): L breast biopsy (2017) benign Past Anesthesia/Blood Transfusion Reactions: No Reported Reaction Past Psychological History: Anxiety, Bipolar, Depression Smoking Status: Current every day smoker Past Alcohol Use History: Occasional Past Drug Use History: None Reported - Past Family History Mother Family Medical History: Cancer, Hypertension Additional Family Medical History / Comment(s): Breast cancer dx 2018 Father History Unknown: Yes General Exam - General Exam Comments Initial Comments: Patient does not appear to be ill or toxic. Patient is in distress secondary to back pain. Limitations: no limitations General appearance: alert, in distress Head exam: Present: atraumatic, normocephalic, normal inspection Eye exam: Present: normal appearance, PERRL, EOMI. Absent: scleral icterus, conjunctival injection, periorbital swelling ENT exam: Present: normal exam, mucous membranes moist Neck exam: Present: normal inspection, full ROM. Absent: tenderness, meningismus, lymphadenopathy Respiratory exam: Present: normal lung sounds bilaterally. Absent: respiratory distress, wheezes, rales, rhonchi, stridor Cardiovascular Exam: Present: regular rate, normal rhythm, normal heart sounds. Absent: systolic murmur, diastolic murmur, rubs, gallop, clicks GI/Abdominal exam: Present: soft, normal bowel sounds. Absent: distended, tenderness, guarding, rebound, rigid Rectal exam: Present: normal inspection, normal rectal tone, other (Normal sensation the saddle area. No evidence of cauda equina syndrome, chaperoned by a female RN, intact to light touch and pinprick.). Absent: mass, tenderness Extremities exam: Present: normal inspection, full ROM, normal capillary refill. Absent: tenderness, pedal edema, joint swelling, calf tenderness Back exam: Present: normal inspection, tenderness (Lumbar paraspinal tenderness), paraspinal tenderness, other (Straight leg raise negative bilateral ly.). Absent: full ROM (Range of motion limited by pain.), muscle spasm, vertebral tenderness, rash noted Neurological exam: Present: alert, oriented X3, CN II-XII intact, normal gait (Gait slow and guarded due to back pain), reflexes normal, other (Great toe at sensitize +5 out of 5.). Absent: motor sensory deficit Psychiatric exam: Present: normal affect, normal mood Skin exam: Present: warm, dry, intact, normal color. Absent: rash Course Vital Signs 11/09/21 18:50 Temperature 96.9 F L Pulse Rate 83 Respiratory 20 Rate Blood Pressure 102/68 O2 Sat by Pulse 98 Oximetry Medical Decision Making - Medical Decision Making -There are no red flags for concerning back pathology. Specifically: -No history of cancer, this is not a mass effect, MRI not indicated. -No anticoagulation, this is not a bleed. -No fevers, no IVDU, this is not an infectious process. -No trauma, no bony pain, x-rays are not indicated. -With a normal neuro exam, and no urinary or bowel retention or incontinence, there is no clinical sign of motor defect or cauda equina - MRI is not indicated at this point. -No pulsating abdominal mass or risk factors for AAA. -Pain is relieved with rest, which is also less concerning. -Patient's legs to give out today. Although it sounds like the patient did not have a significant fall. I'm going to order plain film x-rays as the patient has not had any imaging of her back. I do not believe an MRI is indicated. -We will treat symptomatically and discharge home with follow up instructions. -Stretching/strengthening exercise given to patient and they will be referred to physical therapy Patient was told to return to the ER for any signs or symptoms worsen. Told to return immediately if any other problems arise. All questions answered. Treatment plan discussed. Patient in agreement Every effort has been made to ensure accuracy of this dictation. However, due to the limitations of electronic medical records and dictation devices, errors in charting still occur. Going to treat the patient with a Medrol Dosepak until she can get in with back specialist. She is alert established at that office. Patient had no evidence of infectious etiology. Back pain consistent with mechanical back pain. Geoscience Specialist Dr. Monroy Disposition Clinical Impression: Acute low back pain, Lumbar radiculopathy Disposition: HOME SELF-CARE Condition: Stable Instructions (If sedation given, give patient instructions): Acute Low Back Pain (ED), Lumbar Radiculopathy (ED) Additional Instructions: Make an appointment with a back specialist. Call tomorrow morning to get the appointment set up. Apply heat 20 minutes on and off to the low back 4 times daily. Partake in the light walking. Make sure not to fall. Follow-up with your regular physician as directed. Return to the ER immediately if any symptoms worsen, new symptoms arise, or any other problems develop. Continue your Neurontin and muscle relaxer as directed by Dr. Frey Prescriptions: methylPREDNISolone Dose Pack [Medrol Dose Pack] 4 mg PO DIRECTED #21 tab methylPREDNISolone Dose Pack [Medrol Dose Pack] 4 mg PO DIRECTED #21 tab Is patient prescribed a controlled substance at d/c from ED?: No Referrals: Jeremias Frey DO [Primary Care Provider] - 1-2 days True Jimenez DO [Doctor of Osteopathic Medicine] - As Soon As Possible Time of Disposition: 20:29
--- NOTE | 2021-11-09 19:51 | XR ---
EXAMINATION TYPE: XR lumbar spine 2 or 3V DATE OF EXAM: 11/09/2021 COMPARISON: NONE HISTORY: Pain TECHNIQUE: 3 views FINDINGS: Lumbar vertebrae are normal alignment. Posterior elements are intact. Disc spaces are tonya l. Sacroiliac joints are normal IMPRESSION: Normal lumbar spine exam.
[2021-11-09] MEDS ORDERED: ACET/COD 300 MG/30 MG STARTER PACK 6 TAB BTL PO STA (20:26)
[2021-11-09 21:18] VITALS: BP 113/75; PULSE 65; RESP 18
== END 2021-11-09 21:18 | disposition home or self-care (01) ==
LOC: EC 18:49
DX: M54.16 Radiculopathy, lumbar region (principal); F17.200 Nicotine dependence, unspecified, uncomplicated; Z91.012 Allergy to eggs; Z88.6 Allergy status to analgesic agent; Z88.1 Allergy status to other antibiotic agents
CPT/HCPCS: 72100; 99283; 96374; 96375; J2360; J1170

== ENCOUNTER → 2021-12-09 | Outpatient (CLI) | payer OTHER ==
--- NOTE | 2021-12-09 14:22 | MR ---
EXAMINATION TYPE: MR lumbar spine wo con DATE OF EXAM: 12/09/2021 COMPARISON: Lumbar spine x-ray November 09, 2021. CT abdomen and pelvis June 03, 2021 HISTORY: No prior, low back pain, burning to ANGELIA hips and pain to BLE for 4 months following a fall TECHNIQUE: Multiplanar, multisequence imaging of the lumbar spine is performed without IV contrast. FINDINGS: Sagittal images of the lumbar spine show vertebral body heights and alignment to appear sat isfactory. Disc desiccation L5-S1 level. Disc space heights are maintained. The conus medullaris is n ormal in position and signal ending superior L1 level. The bone marrow signal intensity is within no rmal limits. Axial images show T12-L1 through L3-L4 levels to appear within normal limits. Axial images at L4-L5 level show mild to moderate facet arthropathy bilaterally with mild broad-based posterior disc protrusion. There is mild effacement of the anterior and posterolateral thecal sac on axial image 8. The bilateral neural foramina are patent. Axial images at L5-S1 level show [id number] facet arthropathy bilaterally. There is focal left paracentral disc protrusion effacing anterolateral thecal sac and encroaching in close proximity to t he central left S1 nerve axial image 2 and sagittal image 7. Correlate clinically for radiculopathy t ype symptoms at this level. Bilateral neural foramina are patent. Paraspinal muscle bulk is preserved. IMPRESSION: [id number] multilevel degenerative changes in the lower lumbar spine as detailed ab ove.
== END | disposition home or self-care (01) ==
LOC: RADMRIMAIN 11:14
PROVIDERS: ATTEND Orthopaedic Surgery
DX: M51.16 Intervertebral disc disorders with radiculopathy, lumbar region (principal); M47.26 Other spondylosis with radiculopathy, lumbar region
CPT/HCPCS: 72148

== ENCOUNTER 2022-03-25 17:32 | Emergency (ER) | payer OTHER ==
[2022-03-25 18:28] LABS: Basophils % (A) 1 %; Eosinophils # (A) 0.2 k/uL (0-0.7); Eosinophils % (A) 2 %; HCT 40.8 % (34.0-46.0); HGB 13.8 gm/dL (11.4-16.0); Lymphocytes # (A) 2.2 k/uL (1.0-4.8); Lymphocytes % (A) 28 %; MCH 29.1 pg (25.0-35.0); MCHC 33.8 g/dL (31.0-37.0); MCV 86.1 fL (80.0-100.0); Mean Platelet Volume 8.7; Monocytes # (A) 0.3 k/uL (0-1.0); Monocytes % (A) 4 %; Neutrophils # (A) 4.9 k/uL (1.3-7.7); Neutrophils % (A) 64 %; Platelet Count 272 k/uL (150-450); RBC 4.74 m/uL (3.80-5.40); RDW 12.3 % (11.5-15.5); WBC 7.7 k/uL (3.8-10.6)
[2022-03-25 18:36] LABS: ALT 18 U/L (4-34); AST 20 U/L (14-36); African American GFR (CKD) >90 (>60 ml/min/1.73 sqM); Albumin 4.3 g/dL (3.5-5.0); Alkaline Phosphatase 60 U/L (38-126); Anion Gap 5 mmol/L; Blood Urea Nitrogen 10 mg/dL (7-17); Carbon Dioxide 26 mmol/L (22-30); Chloride 109 mmol/L (98-107); Glucose 89 mg/dL (74-99); Non-African American GFR(CKD) >90 (>60 ml/min/1.73 sqM); Potassium 3.8 mmol/L (3.5-5.1); Sodium 140 mmol/L (137-145); Total Bilirubin 0.6 mg/dL (0.2-1.3); Total Protein 6.8 g/dL (6.3-8.2)
[2022-03-25] MEDS ORDERED: predniSONE 20 MG TAB PO STA (19:41)
--- NOTE | 2022-03-25 20:14 | ED ---
Extremity Problem HPI - General Chief complaint: Extremity Problem,Nontraumatic Stated complaint: L arm pain/Burning Time Seen by Provider: 03/25/22 19:30 Source: patient, RN notes reviewed Limitations: no limitations - History of Present Illness Initial comments: This is a pleasant, [id number] 46-year-old female who presents to emergency department complaining of left shoulder pain which radiates into the left arm. Patient states that pain is exacerbated by movement, alleviated by rest, is sharp in nature located mainly in the left shoulder area right she has some burning and tingling pain down the arm all the way into the hand, she is indicating the first through third digits. Patient states she went to both her doctor chiropractor previously. She states he thought there was some neck problems and likely some problems with arthritis. She denies any chest pain or shortness of breath. Patient denies any fever or chills. Patient is a cigarette smoker. No headache, no fever or chills, no changes in vision or hearing, no sore throat or difficulty with speech, no neck pain, no chest pain or shortness of breath, no abdominal pain, no nausea or vomiting, no changes in urination or bowel movements, no numbness or tingling,, no skin rashes or lesions. Past medical, surgical, social, and family history reviewed. - Related Data Home Medications Medication Instructions Recorded Confirmed ALPRAZolam [Xanax] 0.5 mg PO DAILY PRN 02/05/19 06/03/21 Ibuprofen [Motrin] 800 mg PO Q8H PRN 06/03/21 06/03/21 Lisdexamfetamine Dimesylate 40 mg PO DAILY 06/03/21 06/03/21 [Vyvanse] Previous Rx's Medication Instructions Recorded Cephalexin [Keflex] 500 mg PO Q6HR #28 cap 06/03/21 Gabapentin [Neurontin] 100 mg PO TID 3 Days #9 cap 09/11/21 methylPREDNISolone Dose Pack 4 mg PO DIRECTED #21 tab 11/09/21 [Medrol Dose Pack] methylPREDNISolone Dose Pack 4 mg PO DIRECTED #21 tab 11/09/21 [Medrol Dose Pack] predniSONE [Deltasone] 40 mg PO DIRECTED #8 tab 03/25/22 Allergies Allergy/AdvReac Type Severity Reaction Status Date / Time egg Allergy Unknown Verified 11/09/21 18:53 meloxicam [From Mobic] Allergy Itching Verified 11/09/21 18:53 nitrofurantoin Allergy Rash/Hives Verified 11/09/21 18:53 tetracycline [Tetracycline] Allergy Rash/Hives Verified 11/09/21 18:53 Review of Systems ROS Statement: Those systems with pertinent positive or pertinent negative responses have been documented in the HPI. ROS Other: All systems not noted in ROS Statement are negative. Past Medical History Past Medical History: GERD/Reflux, Osteoarthritis (OA), Pneumonia Additional Past Medical History / Comment(s): migraines, arthritis History of Any Multi-Drug Resistant Organisms: None Reported Past Surgical History: Orthopedic Surgery Additional Past Surgical History / Comment(s): L breast biopsy (2017) benign Past Anesthesia/Blood Transfusion Reactions: No Reported Reaction Past Psychological History: Anxiety, Bipolar, Depression Smoking Status: Current every day smoker Past Alcohol Use History: Occasional Past Drug Use History: None Reported - Past Family History Mother Family Medical History: Cancer, Hypertension Additional Family Medical History / Comment(s): Breast cancer dx 2018 Father History Unknown: Yes General Exam - General Exam Comments Initial Comments: Patient not ill or toxic. Alert. Limitations: no limitations General appearance: alert, in no apparent distress Head exam: Present: atraumatic, normocephalic, normal inspection Eye exam: Present: normal appearance, PERRL, EOMI. Absent: scleral icterus, conjunctival injection, periorbital swelling ENT exam: Present: normal exam, normal oropharynx, mucous membranes dry, mucous membranes moist, normal external ear exam Neck exam: Present: normal inspection, full ROM. Absent: tenderness, meningismus, lymphadenopathy Respiratory exam: Present: normal lung sounds bilaterally. Absent: respiratory distress, wheezes, rales, rhonchi, stridor, chest wall tenderness, accessory muscle use, decreased breath sounds, prolonged expiratory Cardiovascular Exam: Present: regular rate, normal rhythm, normal heart sounds. Absent: systolic murmur, diastolic murmur, rubs, gallop, clicks GI/Abdominal exam: Present: soft, normal bowel sounds. Absent: distended, tenderness, guarding, rebound, rigid Extremities exam: Present: normal inspection, full ROM, normal capillary refill. Absent: tenderness, pedal edema, joint swelling, calf tenderness Left Shoulder Exam: Present: tenderness, other (Positive Shannon test, positive Neer impingement sign). Absent: full ROM, swelling, abrasion, laceration, ecchymosis, deformity, crepitus, dislocation, erythema, tenderness over AC joint Upper Arm exam: Present: normal inspection. Absent: tenderness, swelling Elbow exam: Present: normal inspection. Absent: tenderness, swelling, abrasion Forearm Wrist exam: Present: normal inspection. Absent: swelling Hand Wrist exam: Present: normal inspection, full ROM. Absent: tenderness, swelling, abrasion Neuro motor exam: Present: wrist extension intact, thumb opposition intact, thumb IP flexion intact, thumb adduction intact, fingers 2-5 abduction intact Neurosensory exam: Present: 2-point discrimination, radial nerve intact, ulnar nerve intact, median nerve intact Vascular: Present: normal capillary refill. Absent: vascular compromise, Pallo, pulse deficit radial art, pulse deficit ulnar art Back exam: Present: normal inspection Neurological exam: Present: alert, oriented X3, CN II-XII intact. Absent: motor sensory deficit Psychiatric exam: Present: normal affect, normal mood Skin exam: Present: warm, dry, intact, normal color. Absent: rash Course Vital Signs 03/25/22 03/25/22 17:58 21:00 Temperature 98 F Pulse Rate 98 75 Respiratory 16 18 Rate Blood Pressure 138/90 120/56 O2 Sat by Pulse 97 97 Oximetry Medical Decision Making - Medical Decision Making Was pt. sent in by a medical professional or institution? @ -[no] Did you speak to anyone other than the patient for history? @ -[No] Did you review nursing and triage notes? @ -Agree Were old charts reviewed? @ -no Differential Diagnosis? @ -Note that the cardiac workup was ordered by the triage nurse. Certainly with left shoulder pain cardiac etiology is within the differential. Rotator cuff tear, impingement syndrome, osteoarthritis, inflammatory arthritis, gout, this is not an comprehensive list EKG interpreted by me (3pts min.)? @ -Independently interpreted by me X-rays interpreted by me (1pt min.)? @ -yes, no acute findings on 1 view chest x-ray and left shoulder x-ray as independently interpreted by me. Was smoking cessation discussed for >3mins.? @ -[I discussed smoking cessation for greater than 3 minutes. The risk of smoking were discussed with the patient including but not limited to risks of cancer, stroke, coronary artery disease and COPD. Also discussed with patient were multiple methods of quitting smoking. Lastly we discussed the financial cost of smoking.] What co-morbidities impacted this encounter? (DM, HTN, Smoking, COPD, CAD, Cancer, CVA, Hep., AIDS, mental health diagnosis, sleep apnea, morbid obesity)? @ -Osteoarthritis, cigarette smoking Was patient admitted / discharged? @ -She was discharged with essentially conservative therapy, orthopedic follow- up. I did agree to give the patient a round of corticosteroids for prednisone 40 mg daily for 5 days given the suspected nerve impingement as the patient does have some radicular type pain which is intermittent. Remainder the patient's discomfort seems to be consistent with impingement syndrome Undiagnosed new problem with uncertain prognosis? @ -[none] Drug Therapy requiring intensive monitoring for toxicity (Heparin, Nitro, Insulin, Cardizem)? @ -[none] Were any procedures done? @ -[none] Diagnosis/symptom? @ -Shoulder impingement syndrome with radicular symptoms Acute, or Chronic, or Acute on Chronic? @ -Acute Uncomplicated (without systemic symptoms) or Complicated (systemic symptoms)? @ -Uncomplicated Side effects of treatment? @ -[none] Exacerbation, Progression, or Severe Exacerbation] @ -[no] Poses a threat to life or bodily function? @ -Unlikely Patient was told to return to the ER for any signs or symptoms worsen. Told to return immediately if any other problems arise. All questions answered. Treatment plan discussed. Patient in agreement Every effort has been made to ensure accuracy of this dictation. However, due to the limitations of electronic medical records and dictation devices, errors in charting still occur. The case was discussed in detail with ED attending physician. Presentation, findings, treatment plan discussed in detail. Supervising physician Dr. Butterfield - Lab Data Result diagrams: 03/25/22 18:24 03/25/22 18:24 Lab Results 03/25/22 03/25/22 03/25/22 Range/Units 18:24 18:24 18:45 WBC 7.7 (3.8-10.6) k/uL RBC 4.74 (3.80-5.40) m/uL Hgb 13.8 (11.4-16.0) gm/dL Hct 40.8 (34.0-46.0) % MCV 86.1 (80.0-100.0) fL MCH 29.1 (25.0-35.0) pg MCHC 33.8 (31.0-37.0) g/dL RDW 12.3 (11.5-15.5) % Plt Count 272 (150-450) k/uL MPV 8.7 Neutrophils % 64 % Lymphocytes % 28 % Monocytes % 4 % Eosinophils % 2 % Basophils % 1 % Neutrophils # 4.9 (1.3-7.7) k/uL Lymphocytes # 2.2 (1.0-4.8) k/uL Monocytes # 0.3 (0-1.0) k/uL Eosinophils # 0.2 (0-0.7) k/uL Basophils # 0.0 (0-0.2) k/uL Sodium 140 (137-145) mmol/L Potassium 3.8 (3.5-5.1) mmol/L Chloride 109 H (98-107) mmol/L Carbon Dioxide 26 (22-30) mmol/L Anion Gap 5 mmol/L BUN 10 (7-17) mg/dL Creatinine 0.66 (0.52-1.04) mg/dL Est GFR (CKD-EPI)AfAm >90 (>60 ml/min/1.73 sqM) Est GFR (CKD-EPI)NonAf >90 (>60 ml/min/1.73 sqM) Glucose 89 (74-99) mg/dL Calcium 10.0 (8.4-10.2) mg/dL Total Bilirubin 0.6 (0.2-1.3) mg/dL AST 20 (14-36) U/L ALT 18 (4-34) U/L Alkaline Phosphatase 60 (38-126) U/L Troponin I <0.012 (0.000-0.034) ng/mL Total Protein 6.8 (6.3-8.2) g/dL Albumin 4.3 (3.5-5.0) g/dL Disposition Clinical Impression: Impingement syndrome of left shoulder Disposition: HOME SELF-CARE Condition: Good Instructions (If sedation given, give patient instructions): Shoulder Impingement Syndrome (ED) Additional Instructions: Follow-up with your regular physician as directed. Return to the ER immediately if any symptoms worsen, new symptoms arise, or any other problems develop. Call tomorrow morning to schedule appointment with the orthopedic physician as discussed. He can use [id number] Tylenol as directed on the bottle for additional control of discomfort. Prescriptions: predniSONE [Deltasone] 40 mg PO DIRECTED #8 tab Is patient prescribed a controlled substance at d/c from ED?: No Referrals: True Jimenez DO [Doctor of Osteopathic Medicine] - 1-2 days Time of Disposition: 21:38
--- NOTE | 2022-03-25 20:32 | XR ---
EXAMINATION TYPE: XR chest 1V DATE OF EXAM: 03/25/2022 7:53 PM COMPARISON: Chest radiographs from 07/22/2017 TECHNIQUE: XR chest 1V Portable AP radiograph of the chest. CLINICAL INDICATION:Female, 46 years old with history of left shoulder pain; FINDINGS: Lungs/Pleura: There is no evidence of pleural effusion, focal consolidation, or pneumothorax. Pulmonary vascularity: Unremarkable. Heart/mediastinum: Cardiomediastinal silhouette is unremarkable. Musculoskeletal: No acute osseous pathology. IMPRESSION: No acute cardiopulmonary disease/process.
--- NOTE | 2022-03-25 20:33 | XR ---
EXAMINATION TYPE: XR shoulder complete LT DATE OF EXAM: 03/25/2022 7:53 PM INDICATION: Patient age:Female; 46 years old; Reason for study: left shoulder pain; COMPARISON: None TECHNIQUE: The left shoulder was examined in AP, internally rotated and scapular Y projections. . FINDINGS: No evidence of acute osseous pathology, joint dislocation, or soft tissue swelling. The remaining por tions of the visualized chest are unremarkable. Minimal osteophyte formation of the artery, and an di stal clavicle. IMPRESSION: 1. No acute osseous pathology. 2. Mild left shoulder osteoarthrosis.
[2022-03-25 21:23] VITALS: BP 120/56; PULSE 75; RESP 18
[2022-03-25 21:50] VITALS: TEMP 98
== END 2022-03-25 21:49 | disposition home or self-care (01) ==
LOC: EC 17:32
DX: M75.42 Impingement syndrome of left shoulder (principal); M19.90 Unspecified osteoarthritis, unspecified site; F41.9 Anxiety disorder, unspecified; F31.9 Bipolar disorder, unspecified; Z79.1 Long term (current) use of non-steroidal anti-inflammatories (NSAID); F17.210 Nicotine dependence, cigarettes, uncomplicated; Z88.1 Allergy status to other antibiotic agents; Z88.8 Allergy status to other drugs, medicaments and biological substances; Z91.012 Allergy to eggs; Z88.6 Allergy status to analgesic agent
CPT/HCPCS: 36415; 93005; 80053; 84484; 85025; 73030; 71045; 99284; J7512

== ENCOUNTER 2023-03-06 18:17 | Emergency (ER) | payer OTHER ==
[2023-03-06 18:40] VITALS: BP 144/84; PULSE 89; RESP 16; TEMP 97.5
--- NOTE | 2023-03-06 18:55 | ED ---
Extremity Problem HPI - General Chief complaint: Extremity Problem,Nontraumatic Stated complaint: right leg pain Time Seen by Provider: 03/06/23 18:54 Source: patient, RN notes reviewed Mode of arrival: ambulatory Limitations: no limitations - History of Present Illness Initial comments: Patient's 47 female presenting to the ER chief complaint of right winter pain. Patient states going on for a while. She denies any injuries. Patient denies any fevers or chills. - Related Data Home Medications Medication Instructions Recorded Confirmed ALPRAZolam [Xanax] 0.5 mg PO DAILY PRN 02/05/19 06/03/21 Ibuprofen [Motrin] 800 mg PO Q8H PRN 06/03/21 06/03/21 Lisdexamfetamine Dimesylate 40 mg PO DAILY 06/03/21 06/03/21 [Vyvanse] Previous Rx's Medication Instructions Recorded Cephalexin [Keflex] 500 mg PO Q6HR #28 cap 06/03/21 Gabapentin [Neurontin] 100 mg PO TID 3 Days #9 cap 09/11/21 methylPREDNISolone Dose Pack 4 mg PO DIRECTED #21 tab 11/09/21 [Medrol Dose Pack] methylPREDNISolone Dose Pack 4 mg PO DIRECTED #21 tab 11/09/21 [Medrol Dose Pack] predniSONE [Deltasone] 40 mg PO DIRECTED #8 tab 03/25/22 Allergies Allergy/AdvReac Type Severity Reaction Status Date / Time egg Allergy Unknown Verified 11/09/21 18:53 meloxicam [From Mobic] Allergy Itching Verified 11/09/21 18:53 nitrofurantoin Allergy Rash/Hives Verified 11/09/21 18:53 tetracycline [Tetracycline] Allergy Rash/Hives Verified 11/09/21 18:53 Review of Systems ROS Statement: Those systems with pertinent positive or pertinent negative responses have been documented in the HPI. ROS Other: All systems not noted in ROS Statement are negative. Past Medical History Past Medical History: GERD/Reflux, Osteoarthritis (OA), Pneumonia Additional Past Medical History / Comment(s): migraines, arthritis. vit d def. History of Any Multi-Drug Resistant Organisms: None Reported Past Surgical History: Orthopedic Surgery Additional Past Surgical History / Comment(s): L breast biopsy (2017) benign Past Anesthesia/Blood Transfusion Reactions: No Reported Reaction Past Psychological History: Anxiety, Bipolar, Depression Smoking Status: Current every day smoker Past Alcohol Use History: Occasional Past Drug Use History: None Reported - Past Family History Mother Family Medical History: Cancer, Hypertension Additional Family Medical History / Comment(s): Breast cancer dx 2018 Father History Unknown: Yes General Exam - General Exam Comments Initial Comments: Visual Physical Exam Vital signs reviewed General: Well-appearing, nontoxic, no acute distress. Head: Normocephalic, atraumatic Eyes: PERRLA, EOMI ENT: Airway patent Chest: Nonlabored breathing Skin: No visual rash, normal skin tone Neuro: Alert and oriented 3 Musculoskeletal: No gross abnormalities Limitations: no limitations Course Vital Signs 03/06/23 18:22 Temperature 97.5 F L Pulse Rate 89 Respiratory 16 Rate Blood Pressure 144/84 O2 Sat by Pulse 100 Oximetry Medical Decision Making - Medical Decision Making I performed the quick note portion of the exam. Electronically signed by Jamila Li PA-C Disposition Clinical Impression: Left against medical advice Disposition: LEFT AGAINST MEDICAL ADVICE Condition: Undetermined Referrals: Jeremias Frey DO [Primary Care Provider] - 1-2 days Time of Disposition: 18:25
--- NOTE | 2023-03-06 19:40 | XR ---
EXAMINATION TYPE: XR knee complete RT DATE OF EXAM: 03/06/2023 7:22 PM CLINICAL INDICATION:Female, 47 years old with history of pain; [facility] COMPARISON: None. TECHNIQUE: 4 views right tibia/fibula. 3 views right knee. FINDINGS: Osseous mineralization appears appropriate. Right total knee arthroplasty in place, appears intact an d normally aligned. Posterior resurfacing changes of the patella. No evidence of hardware failure or acute osseous pathology. Tibia and fibula appear intact and unremarkable continuing distally. Ankle a ppears grossly unremarkable as seen. Small to moderate sized plantar calcaneal spur. No sizable knee joint effusion or other soft tissue abnormality. No radiopaque foreign body. IMPRESSION: 1. Total knee arthroplasty in place, appears intact and normally aligned. No perihardware lucency. 2. No acute bony abnormality.
--- NOTE | 2023-03-06 19:40 | XR ---
EXAMINATION TYPE: XR tibia fibula RT DATE OF EXAM: 03/06/2023 7:22 PM CLINICAL INDICATION:Female, 47 years old with history of pain; [facility] COMPARISON: TECHNIQUE: 4 views right tibia/fibula. 3 views right knee. FINDINGS: Osseous mineralization appears appropriate. Right total knee arthroplasty in place, appears intact an d normally aligned. Posterior resurfacing changes of the patella. No evidence of hardware failure or acute osseous pathology. Tibia and fibula appear intact and unremarkable continuing distally. Ankle a ppears grossly unremarkable as seen. Small to moderate sized plantar calcaneal spur. No sizable knee joint effusion or other soft tissue abnormality. No radiopaque foreign body. IMPRESSION: 1. Total knee arthroplasty in place, appears intact and normally aligned. No perihardware lucency. 2. No acute bony abnormality.
== END 2023-03-06 20:25 | disposition left against medical advice (07) ==
LOC: EC 18:17
DX: Z53.29 Procedure and treatment not carried out because of patient's decision for other reasons (principal); M19.90 Unspecified osteoarthritis, unspecified site; F41.9 Anxiety disorder, unspecified; F31.9 Bipolar disorder, unspecified; F17.200 Nicotine dependence, unspecified, uncomplicated; Z79.1 Long term (current) use of non-steroidal anti-inflammatories (NSAID); Z91.011 Allergy to milk products; Z88.8 Allergy status to other drugs, medicaments and biological substances
CPT/HCPCS: 99283

== ENCOUNTER → 2023-10-12 | Outpatient (CLI) | payer OTHER ==
--- NOTE | 2023-10-15 11:52 | MM ---
Reason for Exam: Screening (asymptomatic). Last mammogram was performed 2 year(s) and 9 month(s) ago. Patient History: Menarche at age 13. First Full-Term at age 26. Postmenopausal. Patient used Hormonal Contraceptives for 5 years. 12/08/2015, Benign Core Biopsy on the left side. Maternal aunt had breast cancer, age 40. Mother had breast cancer, age 63. Risk Values: Laurita 5 year model risk: 2.1%. NCI Lifetime model risk: 18.4%. Prior Study Comparison: 12/22/2017 Bilateral Screening Mammogram, [facility]. 08/29/2019 Bilateral Screening Mammogram, [facility]. 01/13/2021 Bilateral Screening Mammogram, [facility]. Tissue Density: The breasts are extremely dense, which lowers the sensitivity of mammography. Findings: Analyzed By CAD. The pattern is symmetrical. No significant interval change. Benign calcifications are present. A core marker is within the left breast. No suspicious groups of microcalcifications, spiculated or lobular masses, architectural distortion or other secondary signs of malignancy are mammographically apparent. Overall Assessment: Benign, BI-RAD 2 Management: Screening Mammogram of both breasts in 1 year. A negative mammogram report should not preclude additional follow up of suspicious palpable abnormalities. Patient should continue monthly self breast exam. A clinical breast exam by your physician is recommended on an annual basis and results should be correlated with mammographic findings. Note on Laurita scores and lifetime risk: 1. A Laurita score greater than 3% is considered moderate risk. If this is the case, consider specialist referral to assess eligibility for a risk reducing agent. 2. If overall lifetime risk for the development of breast cancer is 20% or higher, the patient may qualify for future screening with alternating mammogram and breast MRI. Electronically signed and approved by: Ortega Steele D.O. Radiologis
== END | disposition home or self-care (01) ==
LOC: RADMAMWWP 15:53
PROVIDERS: ATTEND Family Medicine
DX: Z12.31 Encounter for screening mammogram for malignant neoplasm of breast (principal); R92.343 Mammographic extreme density, bilateral breasts; Z78.0 Asymptomatic menopausal state; Z80.3 Family history of malignant neoplasm of breast
CPT/HCPCS: 77063; 77067

== ENCOUNTER 2024-04-03 11:17 | Emergency (ER) | payer OTHER ==
[2024-04-03 11:27] VITALS: BP 159/84; PULSE 69; TEMP 98.3
[2024-04-03 12:03] VITALS: RESP 20
--- NOTE | 2024-04-03 12:23 | XR ---
EXAMINATION TYPE: XR chest 2V DATE OF EXAM: 04/03/2024 12:17 PM COMPARISON: Chest x-ray March 25, 2022 CLINICAL INDICATION: Female, 48 years old with history of Cough, TECHNIQUE: Frontal and lateral views of the chest are obtained. FINDINGS: Diminished inspiration is seen with central vascular congestion There is no suspicious per ipheral focal air space opacity, pleural effusion, or pneumothorax seen. The cardiac silhouette size remain within normal limits. The osseous structures are intact. IMPRESSION: No acute peripheral pulmonary infiltrate. Mild central vascular congestion could reflect fluid overload state versus product of poor inspiration. [facility], , 04/03/2024 12:21 PM
--- NOTE | 2024-04-03 13:21 | ED ---
General Adult HPI - General Chief complaint: Upper Respiratory Infection Stated complaint: SOB Time Seen by Provider: 04/03/24 11:50 Source: patient, RN notes reviewed, old records reviewed Mode of arrival: ambulatory Limitations: no limitations - History of Present Illness Initial comments: 48-year-old female with several day history of cough, congestion, fever. Patient states she is otherwise healthy and that her significant other does have similar symptoms. He was prescribed antibiotics and steroids from his primary care provider. He did not undergo viral testing. - Related Data Home Medications Medication Instructions Recorded Confirmed ALPRAZolam [Xanax] 0.5 mg PO DAILY PRN 02/05/19 06/03/21 Ibuprofen [Motrin] 800 mg PO Q8H PRN 06/03/21 06/03/21 Lisdexamfetamine Dimesylate 40 mg PO DAILY 06/03/21 06/03/21 [Vyvanse] Previous Rx's Medication Instructions Recorded Cephalexin [Keflex] 500 mg PO Q6HR #28 cap 06/03/21 Gabapentin [Neurontin] 100 mg PO TID 3 Days #9 cap 09/11/21 methylPREDNISolone Dose Pack 4 mg PO DIRECTED #21 tab 11/09/21 [Medrol Dose Pack] methylPREDNISolone Dose Pack 4 mg PO DIRECTED #21 tab 11/09/21 [Medrol Dose Pack] predniSONE [Deltasone] 40 mg PO DIRECTED #8 tab 03/25/22 Oseltamivir [Tamiflu] 75 mg PO Q12HR 5 Days #10 cap 04/03/24 Allergies Allergy/AdvReac Type Severity Reaction Status Date / Time egg Allergy Unknown Verified 04/03/24 11:25 meloxicam [From Mobic] Allergy Itching Verified 04/03/24 11:25 nitrofurantoin Allergy Rash/Hives Verified 04/03/24 11:25 tetracycline [Tetracycline] Allergy Rash/Hives Verified 04/03/24 11:25 Review of Systems ROS Statement: Those systems with pertinent positive or pertinent negative responses have been documented in the HPI. ROS Other: All systems not noted in ROS Statement are negative. Past Medical History Past Medical History: GERD/Reflux, Osteoarthritis (OA), Pneumonia Additional Past Medical History / Comment(s): migraines, arthritis. vit d def. History of Any Multi-Drug Resistant Organisms: None Reported Past Surgical History: Orthopedic Surgery Additional Past Surgical History / Comment(s): L breast biopsy (2017) benign Past Anesthesia/Blood Transfusion Reactions: No Reported Reaction Past Psychological History: Anxiety, Bipolar, Depression Smoking Status: Current every day smoker Past Alcohol Use History: Occasional Past Drug Use History: None Reported - Past Family History Mother Family Medical History: Cancer, Hypertension Additional Family Medical History / Comment(s): Breast cancer dx 2018 Father History Unknown: Yes General Exam Limitations: no limitations General appearance: alert, in no apparent distress Head exam: Present: atraumatic, normocephalic Eye exam: Present: normal appearance, PERRL Neck exam: Present: normal inspection Respiratory exam: Present: normal lung sounds bilaterally. Absent: respiratory distress, wheezes Cardiovascular Exam: Present: regular rate, normal rhythm GI/Abdominal exam: Present: soft. Absent: distended, tenderness Neurological exam: Present: alert, oriented X3 Psychiatric exam: Present: normal affect, normal mood Course Vital Signs 04/03/24 04/03/24 11:24 12:01 Temperature 98.3 F Pulse Rate 69 Respiratory 14 20 Rate Blood Pressure 159/84 O2 Sat by Pulse 96 Oximetry Medical Decision Making - Medical Decision Making Was pt. sent in by a medical professional or institution (, PA, PUBLIC IMPROVEMENT INSPECTOR, urgent care, hospital, or senior living...) When possible be specific @ -No Did you speak to anyone other than the patient for history (EMS, parent, family, police, friend...)? What history was obtained from this source @ -No Did you review nursing and triage notes (agree or disagree)? Why? @ -I reviewed and agree with nursing and triage notes Were old charts reviewed (outside hosp., previous admission, EMS record, old EKG, old radiological studies, urgent care reports/EKG's, senior living records)? Report findings @ -No old charts were reviewed Differential Diagnosis: Pneumonia, viral upper respiratory infection, influenza EKG interpreted by me (3pts min.). @ -As above X-rays interpreted by me (1pt min.). @ -Chest x-ray negative for consolidated pneumonia CT interpreted by me (1pt min.). @ -None done U/S interpreted by me (1pt. min.). @ -None done What testing was considered but not performed or refused? (CT, X-rays, U/S, labs)? Why? @ -None What meds were considered but not given or refused? Why? @ -None Did you discuss the management of the patient with other professionals (professionals i.e. , PA, PUBLIC IMPROVEMENT INSPECTOR, lab, RT, psych nurse, social sciences research scientist, job molder, teacher, consumer safety officer, returned case inspector)? Give summary @ -No Was smoking cessation discussed for >3mins.? @ -No Was critical care preformed (if so, how long)? @ -No Were there social determinants of health that impacted care today? How? (Homelessness, low income, unemployed, alcoholism, drug addiction, transportation, low edu. Level, literacy, decrease access to med. care, penitentiary, rehab)? @ -No Was there de-escalation of care discussed even if they declined (Discuss DNR or withdrawal of care, Hospice)? DNR status @ -No What co-morbidities impacted this encounter? (DM, HTN, Smoking, COPD, CAD, Cancer, CVA, ARF, Chemo, Hep., AIDS, mental health diagnosis, sleep apnea, morbid obesity)? @ -None Was patient admitted / discharged? Hospital course, mention meds given and route, prescriptions, significant lab abnormalities, going to OR and other pertinent info. @ -48-year-old female with flulike illness, patient does test positive for influenza A. Prescribed Tamiflu. Instructed to return with worsening or changing symptoms and follow-up with her primary care provider. Undiagnosed new problem with uncertain prognosis? @ -No Drug Therapy requiring intensive monitoring for toxicity (Heparin, Nitro, Insul in, Cardizem)? @ -No Were any procedures done? @ -No Diagnosis/symptom? @Influenza A Acute, or Chronic, or Acute on Chronic? @ -Acute Uncomplicated (without systemic symptoms) or Complicated (systemic symptoms)? @ -Default Side effects of treatment? @ -No Exacerbation, Progression, or Severe Exacerbation? @ -No Poses a threat to life or bodily function? How? (Chest pain, [place], [place], pneumonia, PE, COPD, DKA, ARF, appy, cholecystitis, CVA, Diverticulitis, Homicidal, Suicidal, threat to staff... and all critical care pts) @ -[Low risk at this time - Lab Data Lab Results 04/03/24 Range/Units 12:24 Influenza Type A (PCR) Detected A (Not Detectd) Influenza Type B (PCR) Not Detected (Not Detectd) RSV (PCR) Not Detected (Not Detectd) SARS-CoV-2 (PCR) Not Detected (Not Detectd) Disposition Clinical Impression: Influenza Disposition: HOME SELF-CARE Condition: Fair Instructions (If sedation given, give patient instructions): Influenza (ED) Prescriptions: Oseltamivir [Tamiflu] 75 mg PO Q12HR 5 Days #10 cap Is patient prescribed a controlled substance at d/c from ED?: No Referrals: Jeremias Frey DO [Primary Care Provider] - 1-2 days Time of Disposition: 13:20
== END 2024-04-03 13:34 | disposition home or self-care (01) ==
LOC: EC 11:17
DX: J11.1 Influenza due to unidentified influenza virus with other respiratory manifestations (principal); B95.0 Streptococcus, group A, as the cause of diseases classified elsewhere; F17.200 Nicotine dependence, unspecified, uncomplicated; Z88.1 Allergy status to other antibiotic agents; Z88.8 Allergy status to other drugs, medicaments and biological substances; Z91.012 Allergy to eggs
CPT/HCPCS: 71046; 87636; 99285